=== PATIENT | female | born 1955 | race Caucasian/White ===

== ENCOUNTER 2023-08-21 08:36 | Emergency (ER) | payer OTHER, SELFPAY ==
[2023-08-21 08:39] VITALS: BP 130/88; PULSE 112; RESP 19; TEMP 36.6; O2SAT 98; BMI 33.5
--- NOTE | 2023-08-21 08:49 | ED.GENADULT ---
HPI - General Adult General Chief complaint: General Medical Stated complaint: rash Time Seen by Provider: 08/21/23 08:49 Source: patient Mode of arrival: ambulatory Limitations: no limitations History of Present Illness ED Provider: Dr. Dimitrios Mann HPI narrative: 68-year-old female with a history of bipolar disorder and hypothyroidism who presents emergency department painful rash to her upper and lower extremities. Patient states she was playing in the park yesterday with the grandson but does not believe that she was exposed to any vegetation/poison aimee type plants. She states that yesterday she developed pain in her lower extremities and then developed a rash. She also states her lower extremities became swollen. She states that today she developed a rash in her upper extremities. This concerned her and she came to the emergency department for evaluation. The patient denies any new medications. She states she has no allergies to food but does have allergies to amoxicillin and clindamycin but she was not exposed to these drugs. She denied fever, chills, rhinorrhea, sore throat, cough, chest pain or shortness of breath. She has had no nausea vomiting or diarrhea. She denied myalgias arthralgias. She states that she is having difficulty walking secondary to the pain and swelling of her legs but denied fatigue, night sweats, weight loss or weight gain. Related Data Previous Rx's ?Medication ?Instructions ?Recorded prednisone 10 mg tablet 10 mg PO DIRECTED #60 tabs 08/21/23 Allergies Allergy/AdvReac Type Severity Reaction Status Date / Time amoxicillin [AMOXICILLIN] Allergy Unknown RASH Verified 08/21/23 08:44 clindamycin [CLINDAMYCIN] Allergy Unknown UNKNOWN Verified 08/21/23 08:44 Review of Systems Review of Systems: Yes all other systems are reviewed and are negative [facility] Past Medical History [facility] Narrative: Social history: She denies tobacco, alcohol and drug use. Social History Social History Smoked in Last 30 Days: No Use of substances other than those prescribed or required for medical reasons: No Advance Directives: No Advance Directives Information Provided: Yes Physical Exam ED Vital Signs: Vital Signs - 24 hr 08/21/23 08:39 Temperature 98 F Pulse Rate 112 H Respiratory Rate 19 Blood Pressure 130/88 Pulse Oximetry 98 BMI result Body Mass Index 33.5 Vital signs revealed an elevated pulse of 112 otherwise unremarkable. Exam: General: Awake, alert in no distress Head: Normocephalic, atraumatic EENT: PERRL, Lids normal, sclera normal, conjunctiva normal, nose normal , ears normal, throat without erythema or exudates Neck: Supple, no adenopathy Lung: breath sounds symmetric, no wheezing, rales or rhonchi Chest: symmetric movement, nontender Heart: regular rate and rhythm, normal S1, S2 no murmurs or rubs Abdomen: soft, non-tender, nondistended, normal bowel sounds Back: no vertebral tenderness, no CVAT Extremities: Patient has a nonblanching, purpuric rash on her legs and arms (see photos below). Patient has nonpitting edema to her ankles. Neuro: Awake, alert, oriented, normal speech, cranial nerves intact, moves all extremities symmetrically Psych: Pleasant, cooperative Medical Decision Making Medical Decision Making MDM Narrative: 68-year-old female with a history of bipolar disorder and hypothyroidism who presents emergency department painful rash to her upper and lower extremities. Patient's vital signs were normal. Physical examination revealed a nonblanching purpuric rash on her ankles, lower extremities and upper extremities. Patient had no concerning systemic symptoms, no new medications that she started in no recent viral illnesses. Differential diagnosis: ?Includes but is not limited to vasculitis, rheumatologic disease, malignancy, ITP, TTP, drug-induced vasculitis Following evaluation was ordered: CBC, CMP, PT/INR, PTT, ESR, CRP, urinalysis, urine tox screen, CPK Patient was initially treated with the following: Prednisone 60 mg orally Course: 12:32 My interpretation patient's laboratory evaluation is as follows: CBC was normal. CMP revealed an elevated BUN of 25 with normal creatinine of 0.81. CK was normal at 253. Urine tox screen was negative. Urinalysis positive for blood with negative urinalysis. ESR and CRP were normal. At this time I believe that the patient has painful purpuric rash. Etiology is unclear. I did discuss vasculitis with the patient. The patient was started on prednisone 60 mg once a day for 5 days decrease by 1 pill every 2 days until she completes the taper course. Patient was advised to take Tylenol for pain. She was instructed to follow up with her PCP for re-evaluation and to return if her symptoms get worse or she develops any new symptoms that are concerning to her. Admission/Observation Consideration of admission/observation: Escalation of care including admission/observation considered Lab Data MDM Lab Attestation statement: I reviewed the patient's lab results. 08/21/23 09:40 08/21/23 09:39 Labs: Lab Results 08/21/23 08/21/23 08/21/23 Range/Units 09:39 09:40 11:00 WBC 12.6 H (4.8-10.8) X10*3/uL RBC 4.69 (4.20-5.50) X10*6/uL Hgb 13.7 (12.0-16.0) g/dl Hct 42.2 (37.0-47.0) % MCV 90.0 (80.0-98.0) fL MCH 29.2 (27.0-33.0) pg MCHC 32.5 (31.0-35.0) g/dl RDW 14.1 (11.0-16.0) % Plt Count 177 (160-400) X10*3/uL MPV 9.1 L (9.4-12.3) fL Immature Gran % (Auto) 1.3 H (0.0-0.4) % Neut % (Auto) 67.7 (45-73) % Lymph % (Auto) 20.7 (20-40) % [place] % (Auto) 8.8 (2-11) % Eos % (Auto) 0.8 (0-4) % Baso % (Auto) 0.7 (0-2) % Lymph # (Auto) 2.6 (1.2-4.9) X10*3/uL [place] # (Auto) 1.1 (0.1-1.2) X10*3/uL Eos # (Auto) 0.1 (0.0-0.4) X10*3/uL Baso # (Auto) 0.1 (0.0-0.2) X10*3/uL Abs Immat Gran (auto) 0.17 H (0.00-0.03) X10*3/uL Absolute Neuts (auto) 8.5 H (2.0-8.3) x10*3/uL Absolute Nucleated RBC 0.000 (0.0-0.012) X10*3/uL Nucleated RBC % (auto) 0.0 (0.0-0.2) /100WBC ESR 7 (0-20) MM/HR PT 11.6 (11.1-13.3) SEC INR 1.0 (0.9-1.1) APTT 26.7 (26.0-36.8) SEC Sodium 141 (135-145) mmol/L Potassium 4.3 (3.3-5.1) mmol/L Chloride 108 (96-108) mmol/L Carbon Dioxide 28 (22-29) mmol/L Anion Gap 9 L (12-20) BUN 25 H (9-16) mg/dL Creatinine 0.81 (0.5-1.4) mg/dL Estim Creat Clear Calc 73.5 Estimated GFR > 60 Random Glucose 80 (60-115) mg/dL Lactic Acid 1.2 (0.5-2.0) mmol/L Calcium 9.2 (8.4-10.2) mg/dL Magnesium 1.9 (1.6-2.6) mg/dL Total Bilirubin 0.3 (0.0-1.0) mg/dL AST 23 (5-31) U/L ALT 27 (0-31) U/L Alkaline Phosphatase 69 (39-117) U/L Total Creatine Kinase 253 H (26-140) U/L C-Reactive Protein 0.80 H (< or = 0.50) mg/dL Total Protein 6.6 (6.5-8.0) g/dL Albumin 3.4 L (3.5-5.0) g/dL Lipase 36 (8-78) U/L Urine Color Yellow Urine Appearance Clear Urine pH 6.5 (5.0-9.0) Ur Specific [place] <= 1.005 (1.005-1.025) Urine Protein Negative (Neg-Trace) mg/dL Urine Glucose (UA) Negative (Negative) mg/dL Urine Ketones Negative (Negative) mg/dL Urine Blood Trace H (Negative) Urine Nitrite Negative (Negative) Ur Leukocyte Esterase Negative (Negative) Urine RBC 0-2 (0-2) /HPF Urine WBC 0-5 (0-5) /HPF Ur Squamous Epith Cells 0-2 (0-2) /HPF Urine Bacteria None Seen (None Seen) Hyaline Casts 0-2 (0-2) /LPF Urine Opiates Screen Not Detected (Not Detect) Ur Buprenorphine Scrn Not Detected (Not Detect) ng/mL Ur Oxycodone Screen Not Detected (Not Detect) ng/mL Urine Methadone Screen Not Detected (Not Detect) ng/mL Urine Fentanyl Screen Not Detected (Not Detect) Ur Barbiturates Screen Not Detected (Not Detect) Ur Phencyclidine Scrn Not Detected (Not Detect) Ur Amphetamines Screen Not Detected (Not Detect) U Benzodiazepines Scrn Not Detected (Not Detect) Urine Cocaine Screen Not Detected (Not Detect) U Marijuana (THC) Screen Not Detected (Not Detect) Prescription Management I considered prescription management with: Other (Anti-inflammatory steroid-prednisone) Chronic Conditions Patient?s care impacted by: Other (Bipolar disorder) Discharge Plan Discharge Clinical Impression: Vasculitis, [place] Patient Disposition: Home, Self-Care Instructions: [place] (ED) Additional Instructions: Your blood work was normal which is reassuring. Your symptoms and presentation are consistent with a vasculitis which is inflammation of the arteries in your skin that causes bleeding under the skin. This is treated with an anti-inflammatory steroid called prednisone. Take prednisone 10 mg pills, sick pills once a day for 5 days, then decrease by 1 pill every 2 days until you complete the prescription.. While you ?are taking prednisone, do not take any NSAIDs (Motrin, Advil, ibuprofen, Aleve, naproxen). Take Tylenol (acetaminophen) 500 mg pills, 2 pills every 6 hours as needed for pain or fever. Follow-up with your doctor in 2 days. Please return to the emergency department if your symptoms get worse or if you develop any symptoms that are concerning to you. Prescriptions: New prednisone 10 mg tablet 10 mg PO DIRECTED Qty: 60 0RF Rx Instructions: Day 1 through 5 take 6 pills then decrease by 1 pill every 2 days until you complete prescription Print Language: [place] Islander
--- NOTE | 2023-08-21 09:24 | PC.NURSE ---
Pt a/ox4, comes from home for rash on bilateral upper and lower extremities. Pt states rash is sensitive to the touch. Skin pwd and intact, no abrasions noted to areas. Lung sounds cta bilaterally, S1 and S2 heard, abdomen soft and non-tender. Pt tearful upon entry about missing day. This RN was able to talk to pt and calm her down. Vss and up to date, awaiting further orders, resting in bed, call rico within reach.
[2023-08-21 09:46] LABS: MANUAL DIFF FLAG NO
[2023-08-21 09:47] LABS: Basophils Absolute Auto 0.1 X10*3/uL (0.0-0.2); Basophils Percent Auto 0.7 % (0-2); Eosinophils Absolute Auto 0.1 X10*3/uL (0.0-0.4); Eosinophils Percent Auto 0.8 % (0-4); Hematocrit 42.2 % (37.0-47.0); Hemoglobin 13.7 g/dl (12.0-16.0); Imm Gran Abs Auto 0.17 X10*3/uL (0.00-0.03); Imm Gran Pct Auto 1.3 % (0.0-0.4); Lymphocytes Absolute Auto 2.6 X10*3/uL (1.2-4.9); Lymphocytes Percent Auto 20.7 % (20-40); Mean Corpuscular HGB Conc 32.5 g/dl (31.0-35.0); Mean Corpuscular Hemoglobin 29.2 pg (27.0-33.0); Mean Platelet Volume 9.1 fL (9.4-12.3); Monocytes Absolute Auto 1.1 X10*3/uL (0.1-1.2); Monocytes Percent Auto 8.8 % (2-11); Neutrophils Absolute Auto 8.5 x10*3/uL (2.0-8.3); Neutrophils Percent Auto 67.7 % (45-73); Platelet Count 177 X10*3/uL (160-400); Red Blood Count 4.69 X10*6/uL (4.20-5.50); Red Cell Distribution Width 14.1 % (11.0-16.0); White Blood Count 12.6 X10*3/uL (4.8-10.8)
[2023-08-21 09:58] LABS: Prothrombin Time 11.6 SEC (11.1-13.3)
[2023-08-21 10:01] LABS: Partial Thromboplastin Time 26.7 SEC (26.0-36.8)
[2023-08-21 10:17] LABS: Lactic Acid 1.2 mmol/L (0.5-2.0)
[2023-08-21 10:25] LABS: Alanine Aminotransferase 27 U/L (0-31); Albumin Level 3.4 g/dL (3.5-5.0); Alkaline Phosphatase 69 U/L (39-117); Anion Gap 9 (12-20); Aspartate Amino Transferase 23 U/L (5-31); Bilirubin Total 0.3 mg/dL (0.0-1.0); Blood Urea Nitrogen 25 mg/dL (9-16); Calcium 9.2 mg/dL (8.4-10.2); Carbon Dioxide 28 mmol/L (22-29); Chloride 108 mmol/L (96-108); Creatinine Clr Calc Pharmacy 73.5; Estimated Glomerular Filt Rate > 60; Glucose Random 80 mg/dL (60-115); Lipase 36 U/L (8-78); Magnesium 1.9 mg/dL (1.6-2.6); Potassium 4.3 mmol/L (3.3-5.1); Sodium 141 mmol/L (135-145); Total Protein 6.6 g/dL (6.5-8.0)
[2023-08-21 10:30] LABS: Erythrocyte Sedimentation Rate 7 MM/HR (0-20)
[2023-08-21 11:09] LABS: Appearance Urine Clear; Color Urine Yellow; Glucose Urine UA Negative (Negative); Leukocyte Esterase Urine Negative (Negative); Nitrite Urine Negative (Negative); PH 6.5 (5.0-9.0); Specific Gravity - Urine <= 1.005 (1.005-1.025); UMIC TRIGGER UACC YES; Urine Blood Trace (Negative); Urine Ketones Negative (Negative); Urine Protein Negative (Neg-Trace)
[2023-08-21 11:24] LABS: Amphetamine Screen Urine Not Detected (Not Detect); Barbiturates, Urine Not Detected (Not Detect); Benzodiazepines Screen Urine Not Detected (Not Detect); Buprenorphine Scr Not Detected (Not Detect); Cannabinoid Screen Urine Not Detected (Not Detect); Cocaine Screen Urine Not Detected (Not Detect); Fentanyl, urine Not Detected (Not Detect); Methadone Screen, Urine Not Detected (Not Detect); Opiate Screen Urine Not Detected (Not Detect); Oxycodone Screen Urine Not Detected (Not Detect); Phencyclidine Screen Urine Not Detected (Not Detect)
[2023-08-21 11:41] LABS: WBC Urine 0-5 /HPF (0-5)
[2023-08-21 11:42] LABS: Bacteria Urine None Seen (None Seen); Hyaline Casts Urine 0-2 /LPF (0-2); RBC Urine 0-2 /HPF (0-2); Squamous Epithelial Cell Urine 0-2 /HPF (0-2)
[2023-08-21 12:22] VITALS: BP 155/70; PULSE 63; RESP 16; TEMP 36.5; O2SAT 99
[2023-08-21] MEDS: predniSONE 20 MG TABLET 60 MG PO (12:48)
[2023-08-21 12:53] VITALS: BP 155/70; PULSE 63; RESP 16; TEMP 36.5; O2SAT 99
== END 2023-08-21 12:54 | disposition home or self-care (01) ==
PROVIDERS: Emergency Provider Emergency Medicine Emergency Medical Services; PCP Family Medicine
DX: I77.6 Arteritis, unspecified (principal); D69.2 Other nonthrombocytopenic purpura
CPT/HCPCS: 36415; 80053; 80307; 81001; 82550; 83605; 83690; 83735; 85025; 85610; 85652; 85730; 86140; 99284

== ENCOUNTER 2023-11-27 09:05 | Inpatient (IN) | payer MEDICARE, OTHER, SELFPAY ==
--- NOTE | ~2023-11-27 | US_ITS ---
EXAMINATION: US TRIPLEX LOWER EXTREMITY, LEFT CLINICAL INFORMATION: Left leg swelling and warmth. Evaluate for deep vein thrombosis. COMPARISON: None available. TECHNIQUE: Color-flow triplex imaging with spectral analysis and compression Doppler were performed on the left lower extremity. FINDINGS: Heterogeneity and noncompressibility within the left common femoral vein, greater saphenous vein, proximal femoral vein, and profunda femoral vein. Additionally, there is no significant Doppler flow within the mid and distal femoral vein, likely due to thrombus. Minimal Doppler flow within the left popliteal vein. No significant flow within the left posterior tibial vein. Peroneal is not well seen. There is no Campos's cyst. US/US venous duplex LE LT IMPRESSION: 1. Deep vein thrombosis within the left common femoral vein, greater saphenous vein, proximal femoral vein, and profunda femoral vein. 2. Minimal Doppler flow within the left popliteal vein. No significant flow within the left posterior tibial vein. This critical result was discussed with LYLE Perez at 10:50 AM on 11/27/2023 and it was ascertained that the content and urgency of the report was understood at the time of direct communication. Electronically signed by: Chuck Clarke MD 11/27/2023 10:54 AM EDT
[2023-11-27 09:18] VITALS: BP 132/82; PULSE 91; RESP 18; TEMP 36; O2SAT 97; BMI 34.3
--- NOTE | 2023-11-27 09:35 | ED.EXTPRO ---
HPI - Extremity Problem General Chief complaint: Extremity Problem Stated complaint: L Leg swelling Time Seen by Provider: 11/27/23 09:29 Source: patient Mode of arrival: ambulatory Limitations: no limitations History of Present Illness ED Provider: Zion Chaves PA-C HPI Narrative: 68 y/o female with history of bipolar disorder, hypothroidism, periperal vascular disease s/p multiple venous procedures in the past (done at [facility], last 3 years ago) who presents to the ER for evaluation of acute onset of left leg swelling that started last night. She reports at baseline her legs are usually symmetrical and she does not have any residual left-sided swelling. She states she noticed swelling in her entire leg last evening. No injury. No redness to the area. She denies any chest pain or shortness of breath. She denies being on aspirin or any medications for her venous issues. She is unclear what procedure she has had done in the past. She states her vascular surgeon at [facility] wanted to do another procedure but she declined. MD Complaint: extremity swelling Onset (ago): day(s) (1) Pain Consistency: constant Location: lower extremity Radiation: proximal Relieving factors: nothing Exacerbating factors: nothing Associated symptoms: denies other symptoms Related Data Previous Rx's ?Medication ?Instructions ?Recorded prednisone 10 mg tablet 10 mg PO DIRECTED #60 tabs 08/21/23 Allergies Allergy/AdvReac Type Severity Reaction Status Date / Time amoxicillin [AMOXICILLIN] Allergy Unknown RASH Verified 11/27/23 09:22 clindamycin [CLINDAMYCIN] Allergy Unknown UNKNOWN Verified 11/27/23 09:22 Review of Systems Review of Systems: Yes all other systems are reviewed and are negative [facility] Social History Social History Advance Directives: No Advance Directives Information Provided: Yes Physical Exam Vital Signs: Vital Signs: Last Vital Signs Temp 96.8 F 11/27/23 09:18 Pulse 91 11/27/23 09:18 Resp 18 11/27/23 09:18 BP 132/82 11/27/23 09:18 Pulse Ox 97 11/27/23 09:18 O2 Del Method Room Air 11/27/23 09:18 BMI result Body Mass Index 34.3 Appearance: Alert. Oriented X3. No acute distress. Head: normocephalic, atraumatic. Eyes: Pupils equal, round and reactive to light. ENT: Pharynx normal. No tonsillar swelling or exudate. Neck: Normal inspection. Neck supple. CVS: Normal heart rate and rhythm. Pulses normal. Respiratory: No respiratory distress. Breath sounds normal. Abdomen: Soft and nontender. +BS x4 Skin: Skin warm and dry. Normal skin color. Normal skin turgor. No rashes. Extremities: No lower extremity edema in the RLE. 3+ pitting edema of the LLE involving the foot, lower leg and proximal thigh Neuro/psych: Oriented X 3. No motor deficit. No sensory deficit. CN II-XII intact. Normal speech and cognition. Antalgic gait Medical Decision Making Medical Decision Making MDM Narrative: 68-year-old female with history of bipolar disorder, hypothyroidism, peripheral vascular disease who has had unknown vascular procedures done on her left leg in the past presents to the ER for evaluation of acute onset of left lower extremity swelling that started last night. She does have pitting edema of her almost entire left lower extremity. No erythema or warmth to suggest cellulitis. Concern for DVT. She does have adequate peripheral pulses making arterial occlusion/active disease less likely. She has no chest pain or SOB, low suspicion for PE. U/S LLE showing extensive DVT in the LLE with poor flow in the popliteal vein and minimal flow in the lower leg. Case d.w Dr. Cote as Dr. Michelle is away - case also d/w Dr. Oliva - recommending admission for anticoagulation and evaluation by Dr. Michelle tomorrow Patient updated on plan of care - heparin infusion ordered. Differential Diagnosis Differential Diagnoses: The differential diagnosis associated with the presentation includes DVT, cellulitis, lymphedema, arterial occlusion Admission/Observation Consideration of admission/observation: Escalation of care including admission/observation considered Consult Healthcare Provider Management of the patient was discussed with: Hospitalist and Professor Of Food Biochemistry Dr. Rupert Cote Lab Data MDM Lab Attestation statement: I reviewed the patient's lab results. mild anemia and thrombocytopenia, no contraindication for anticoagulation 11/27/23 10:45 11/27/23 10:45 Labs: Lab Results 11/27/23 Range/Units 10:45 WBC 8.9 (4.8-10.8) X10*3/uL RBC 3.95 L (4.20-5.50) X10*6/uL Hgb 11.9 L (12.0-16.0) g/dl Hct 35.6 L (37.0-47.0) % MCV 90.1 (80.0-98.0) fL MCH 30.1 (27.0-33.0) pg MCHC 33.4 (31.0-35.0) g/dl RDW 13.7 (11.0-16.0) % Plt Count 152 L (160-400) X10*3/uL MPV 9.0 L (9.4-12.3) fL Immature Gran % (Auto) 0.6 H (0.0-0.4) % Neut % (Auto) 69.4 (45-73) % Lymph % (Auto) 19.9 L (20-40) % [place] % (Auto) 8.5 (2-11) % Eos % (Auto) 1.1 (0-4) % Baso % (Auto) 0.5 (0-2) % Lymph # (Auto) 1.8 (1.2-4.9) X10*3/uL [place] # (Auto) 0.8 (0.1-1.2) X10*3/uL Eos # (Auto) 0.1 (0.0-0.4) X10*3/uL Baso # (Auto) 0.0 (0.0-0.2) X10*3/uL Abs Immat Gran (auto) 0.05 H (0.00-0.03) X10*3/uL Absolute Neuts (auto) 6.2 (2.0-8.3) x10*3/uL Absolute Nucleated RBC 0.000 (0.0-0.012) X10*3/uL Nucleated RBC % (auto) 0.0 (0.0-0.2) /100WBC APTT 28.8 (26.0-36.8) SEC Sodium 140 (135-145) mmol/L Potassium 4.2 (3.3-5.1) mmol/L Chloride 107 (96-108) mmol/L Carbon Dioxide 27 (22-29) mmol/L Anion Gap 10 L (12-20) BUN 24 H (9-16) mg/dL Creatinine 0.95 (0.5-1.4) mg/dL Estim Creat Clear Calc 63.5 Estimated GFR 59 Random Glucose 94 (60-115) mg/dL Calcium 9.3 (8.4-10.2) mg/dL Magnesium 2.1 (1.6-2.6) mg/dL Total Bilirubin 0.3 (0.0-1.0) mg/dL Direct Bilirubin 0.1 (0.0-0.5) mg/dL AST 22 (5-31) U/L ALT 19 (0-31) U/L Alkaline Phosphatase 58 (39-117) U/L Total Protein 6.1 L (6.5-8.0) g/dL Albumin 3.4 L (3.5-5.0) g/dL Independent Interpretation I performed an independent interpretation of an: Ultrasound Interpretation: extensive DVT, acute in the LLE Radiology Impression Discussion of test interpretation with radiology: I have reviewed the radiologist's reading. Radiologist Impression: EXAMINATION: US TRIPLEX LOWER EXTREMITY, LEFT CLINICAL INFORMATION: Left leg swelling and warmth. Evaluate for deep vein thrombosis. COMPARISON: None available. TECHNIQUE: Color-flow triplex imaging with spectral analysis and compression Doppler were performed on the left lower extremity. FINDINGS: Heterogeneity and noncompressibility within the left common femoral vein, greater saphenous vein, proximal femoral vein, and profunda femoral vein. Additionally, there is no significant Doppler flow within the mid and distal femoral vein, likely due to thrombus. Minimal Doppler flow within the left popliteal vein. No significant flow within the left posterior tibial vein. Peroneal is not well seen. There is no Campos's cyst. US/US venous duplex LE LT IMPRESSION: 1. Deep vein thrombosis within the left common femoral vein, greater saphenous vein, proximal femoral vein, and profunda femoral vein. 2. Minimal Doppler flow within the left popliteal vein. No significant flow within the left posterior tibial vein. Tests considered The following testing was considered but not selected: considered CTA abd/pelvis to assess clot burden Prescription Management I considered prescription management with: Pain Medication and Antibiotic Chronic Conditions Patient?s care impacted by: Other (Peripheral vascular disease) Critical Care Time Critical Care Time Critical Care Time: Yes Total Critical Care Time: 33 Attestation: I have personally provided critical care time exclusive of time spent on separately billable procedures. Time includes review of lab data, radiology results, discussion with consultants, and monitoring for potential decompensation. Intervention performed as documented. Discharge Plan Discharge Clinical Impression: Deep vein thrombosis of lower extremity Qualifiers: Affected thrombotic vein of extremity: femoral Chronicity: acute Laterality: left Qualified Code(s): I82.412 - Acute embolism and thrombosis of left femoral vein Patient Disposition: Admitted As Inpatient Print Language: Trinid[place]
[2023-11-27 10:52] LABS: MANUAL DIFF FLAG NO
[2023-11-27 10:54] LABS: Eosinophils Absolute Auto 0.1 X10*3/uL (0.0-0.4); Eosinophils Percent Auto 1.1 % (0-4); PLT CLUMP 1; SCAN SMEAR FLAG 1
[2023-11-27 10:56] LABS: Basophils Percent Auto 0.5 % (0-2); Hematocrit 35.6 % (37.0-47.0); Hemoglobin 11.9 g/dl (12.0-16.0); Imm Gran Abs Auto 0.05 X10*3/uL (0.00-0.03); Imm Gran Pct Auto 0.6 % (0.0-0.4); Lymphocytes Absolute Auto 1.8 X10*3/uL (1.2-4.9); Lymphocytes Percent Auto 19.9 % (20-40); Mean Corpuscular HGB Conc 33.4 g/dl (31.0-35.0); Mean Corpuscular Hemoglobin 30.1 pg (27.0-33.0); Mean Corpuscular Volume 90.1 fL (80.0-98.0); Monocytes Absolute Auto 0.8 X10*3/uL (0.1-1.2); Monocytes Percent Auto 8.5 % (2-11); Neutrophils Absolute Auto 6.2 x10*3/uL (2.0-8.3); Neutrophils Percent Auto 69.4 % (45-73); Red Blood Count 3.95 X10*6/uL (4.20-5.50); Red Cell Distribution Width 13.7 % (11.0-16.0)
[2023-11-27 11:01] LABS: Platelet Count 152 X10*3/uL (160-400); White Blood Count 8.9 X10*3/uL (4.8-10.8)
[2023-11-27 11:09] LABS: Alanine Aminotransferase 19 U/L (0-31); Albumin Level 3.4 g/dL (3.5-5.0); Alkaline Phosphatase 58 U/L (39-117); Anion Gap 10 (12-20); Aspartate Amino Transferase 22 U/L (5-31); Bilirubin Direct 0.1 mg/dL (0.0-0.5); Bilirubin Total 0.3 mg/dL (0.0-1.0); Blood Urea Nitrogen 24 mg/dL (9-16); Calcium 9.3 mg/dL (8.4-10.2); Carbon Dioxide 27 mmol/L (22-29); Chloride 107 mmol/L (96-108); Creatinine Clr Calc Pharmacy 63.5; Estimated Glomerular Filt Rate 59; Glucose Random 94 mg/dL (60-115); Magnesium 2.1 mg/dL (1.6-2.6); Potassium 4.2 mmol/L (3.3-5.1); Sodium 140 mmol/L (135-145); Total Protein 6.1 g/dL (6.5-8.0)
[2023-11-27 11:13] LABS: Partial Thromboplastin Time 28.8 SEC (26.0-36.8)
--- NOTE | 2023-11-27 11:25 | P.HPHOSP_ITS ---
History of Present Illness Date of Service: 11/27/23 Attending physician on admission: Marck Brownlee Chief Complaint: Left lower leg swelling Pt is a 68-year-old female with a PMH significant for?peripheral vascular disease, hypothyroidism, and mood disorder who presents to the ED for evaluation of sudden onset leg swelling since last night. Patient denies any erythema or pain. No known trauma to the area. Has not had any recent prolonged travel. Patient reports being very active as she lives on on the 3rd floor and walks up and down the stairs daily, as well as regularly taking her grandkids to the park. No history of smoking, alcohol, or illicit substance use. States she has a past history of at least 2 prior DVTs 3 years ago at [facility], where it appears she underwent surgical clot removal. However, review of records only reveals superficial saphenous vein thrombus treated with Eliquis. States her father at 55 due to ?thick blood?, though she is unable to further specify his PMH. Denies any known miscarriages. Patient otherwise denies any acute medical complaints. No fever, chills, nausea, vomiting, abdominal pain. No shortness a breath or difficulty breathing. Denies chest pain or pressure or palpitations. In the ED pt's vitals stable and WNL. Labs were grossly unremarkable and at baseline for patient. No leukocytosis. Stable H&H. No significant electrolyte abnormalities. Renal and hepatic function baseline. Venous to lower extremity a DVT within left common femoral vein, greater saphenous vein, proximal femoral vein, and profunda femoral vein. Also found minimal Doppler flow within the left popliteal vein with no significant flow within left posterior tibial vein. In the ED patient was started on a heparin drip. Pt will be admitted to the hospital for treatment and further evaluation of extensive DVT requiring heparin drip and vascular surgery consult. Review of Systems 2 Review of Systems: Left lower leg swelling since last night Denies pain, erythema No other acute medical complaints at this time Denies shortness a breath or difficulty breathing PMFSH Social History Patient Tobacco Use Status: Never used Tobacco Meds Allergies Allergy/AdvReac Type Severity Reaction Status Date / Time amoxicillin [AMOXICILLIN] Allergy Unknown RASH Verified 11/27/23 09:22 clindamycin [CLINDAMYCIN] Allergy Unknown UNKNOWN Verified 11/27/23 09:22 Active Medications: Current Medications Heparin Sodium (Porcine) (Heparin Sodium,Porcine 5,000 Unit/Ml Vial) 3,600 unit 40 unit/kg (3600 unit) IVPUSH PROTOCOL BOLUS PRN; Protocol PRN Reason: 40 unit/kg - Heparin Protocol Heparin Sodium (Porcine) (Heparin Sodium,Porcine 5,000 Unit/Ml Vial) 7,300 unit 80 unit/kg (7300 unit) IVPUSH PROTOCOL BOLUS PRN; Protocol PRN Reason: 80 unit/kg - Heparin Protocol Heparin Sodium/Sodium Chloride (Heparin Sodium,Porcine/1/2ns) 25,000 unit in 250 mls @ 0 mls/hr IVCONT .Q0M [facility]; Protocol Home Medications ?Medication ?Instructions ?Recorded ?Confirmed ?Last Taken ?Type divalproex 500 mg tablet,delayed 500 mg PO BID 11/27/23 Unknown History release levothyroxine 50 mcg tablet 50 mcg PO DAILY@0600 11/27/23 Unknown History lurasidone 60 mg tablet 60 mg PO DAILY 11/27/23 Unknown History trazodone 100 mg tablet 100 - 200 mg PO BEDTIME PRN 11/27/23 Unknown History insomnia Physical Exam 2 Vital Signs and Narrative: Vital Signs: Last Vital Signs Temp 96.8 F 11/27/23 09:18 Pulse 91 11/27/23 09:18 Resp 18 11/27/23 09:18 BP 132/82 11/27/23 09:18 Pulse Ox 97 11/27/23 09:18 O2 Del Method Room Air 11/27/23 09:18 BMI result Body Mass Index 34.3 General: AOx3, no acute distress Resp: CTA bilaterally CVS: S1, S2, RRR GI: +BS, NT, no distention Skin: Warm, dry Neuro: Cranial nerves II-XII grossly intact bilaterally. Motor grossly intact bilaterally Extremities: Minor chronic venous stasis dermatitis changes. 2+ left lower leg edema, as pictured below Psych: Appropriate affect Results Labs 11/27/23 10:45 11/27/23 10:45 Labs: Laboratory Results - last 24 hr 11/27/23 10:45 MCV 90.1 MCH 30.1 MCHC 33.4 RDW 13.7 Plt Count 152 L MPV 9.0 L Immature Gran % (Auto) 0.6 H Neut % (Auto) 69.4 Lymph % (Auto) 19.9 L Dade % (Auto) 8.5 Eos % (Auto) 1.1 Baso % (Auto) 0.5 Lymph # (Auto) 1.8 Dade # (Auto) 0.8 Eos # (Auto) 0.1 Baso # (Auto) 0.0 Abs Immat Gran (auto) 0.05 H Absolute Neuts (auto) 6.2 Absolute Nucleated RBC 0.000 Nucleated RBC % (auto) 0.0 APTT 28.8 Anion Gap 10 L Estim Creat Clear Calc 63.5 Estimated GFR 59 Random Glucose 94 Calcium 9.3 Magnesium 2.1 Total Bilirubin 0.3 Direct Bilirubin 0.1 AST 22 ALT 19 Alkaline Phosphatase 58 Total Protein 6.1 L Albumin 3.4 L Imaging Radiologist's Impressions: Impressions Venous Duplex 11/27/23 10:10 IMPRESSION: 1. Deep vein thrombosis within the left common femoral vein, greater saphenous vein, proximal femoral vein, and profunda femoral vein. 2. Minimal Doppler flow within the left popliteal vein. No significant flow within the left posterior tibial vein. This critical result was discussed with LYLE Perez at 10:50 AM on 11/27/2023 and it was ascertained that the content and urgency of the report was understood at the time of direct communication. Electronically signed by: Chuck Clarke MD 11/27/2023 10:54 AM EDT RP Assessment and Plan (1) Deep vein thrombosis of lower extremity: Qualifiers: Affected thrombotic vein of extremity: femoral Chronicity: acute L aterality: left Qualified Code(s): I82.412 - Acute embolism and thrombosis of left femoral vein Status: Acute Plan Pt is a 68-year-old female with a PMH significant for?peripheral vascular disease, hypothyroidism, and bipolar disorder who presents to the ED for evaluation of sudden onset leg swelling since last night. Pt will be admitted to the hospital for treatment and further evaluation of extensive DVT requiring heparin drip and vascular surgery consult. Left DVT Patient with left lower extremity swelling since last night Doppler U/S found DVT within left common femoral vein, greater saphenous vein, proximal femoral vein, and profunda femoral vein with minimal Doppler flow in the popliteal and left posterior tibial vein Reports hx of prior left DVT 3 years ago at [facility], review of records indicates had superficial saphenous vein thrombus treated with Eliquis ?Hypercoagulable state, should pursue additional workup outpatient Heparin drip Vascular surgery consult Will make NPO after midnight for possible surgical intervention tomorrow Monitor on telemetry Hypothyroidism Continue levothyroxine Bipolar disorder Continue Depakote, lurasidone, trazodone Full Code Attending:?Dr. Brownlee DVT Prophylaxis: On heparin drip Given the extensiveness of patient's DVT, she will require a hospitalization of at least two nights for administration of heparin drip and vascular surgery consult for possible surgical intervention. Quality Stroke Does the patient have a stroke diagnosis?: No VTE Prior VTE?: Yes Approximate Date of Prior VTE: 08/31/19 VTE Risk Level:: Medical - moderate - high VTE Device Contraindication: Treatment Not Indicated VTE Drug Contraindication: N/A - Med Ordered
--- NOTE | 2023-11-27 11:42 | PC.NURSE ---
Report given to Michael RNJono Arevalo at bedside discussing plan of care pt to be moved to ED20 for for further eval and tx
[2023-11-27 12:00] VITALS: BMI 35.5
[2023-11-27 12:11] VITALS: BP 142/69; PULSE 49; RESP 16; TEMP 36.8; O2SAT 96
[2023-11-27] MEDS: Heparin Sodium,Porcine/1/2NS 25,000 UNIT/250 ML IV.SOLN 13.12 UNIT IVCONT (12:46)
[2023-11-27 13:47] LABS: INTERNATIONAL NORM RATIO 0.9 (0.9-1.1)
[2023-11-27 13:55] VITALS: BP 144/66; PULSE 57; RESP 16; TEMP 36.3; O2SAT 98
[2023-11-27] MEDS: 0.9 % Sodium Chloride Flush 3 ML SYRINGE IVFLUSH (15:19)
--- NOTE | 2023-11-27 15:47 | P.CONGS_ITS ---
History of Present Illness Consult details Consult date: 11/27/23 Narrative: [age] year old female admitted because of left leg pain and swelling. She says this started early yesterday morning. She denied any trauma. She says that the entire leg from the thigh distally had pain and was swollen since yesterday day. Her pain is minimal at this time. She says that she had a history of a blood clot in the leg many years ago and had been managed in [facility]. She had a procedure done at that time She had an ultrasound done here today in the ER showing a DVT within the left common femoral vein, greater saphenous vein and proximal femoral vein and the profunda femoral vein. There was note of minimal Doppler flow within the left popliteal vein. She denies any systemic complaints at this time. Review of Systems 2 Constitutional: Constitutional: Denies chills and Denies fever(s) Cardiovascular: Cardiovascular: Denies chest pain, Denies dyspnea and Denies dyspnea on exertion Respiratory: Respiratory: Denies cough, Denies dyspnea and Denies dyspnea on exertion Gastrointestinal: Gastrointestinal: Denies hematochezia and Denies change in bowel habits Genitourinary: Genitourinary: Denies hematuria Musculoskeletal: Musculoskeletal: Denies back pain and Denies limited range of motion Neurologic: Denies focal weakness and Denies convulsions Psychiatric: Psychiatric: Denies depression and Denies mood swings PMF Past Medical History Medical History (Updated 11/29/23 @ 06:52 by Keesha Seymour RN) Bipolar disorder Hypothyroidism PVD (peripheral vascular disease) Surgical History Surgical History (Updated 11/29/23 @ 07:21 by Keesha Seymour RN) H/O varicose vein ligation No pertinent past surgical history Social History Social History Household Members: None Housing: Apartment Do you presently have visiting nurse or other home services: No Patient Tobacco Use Status: Never used Tobacco service: No Meds Allergies Allergy/AdvReac Type Severity Reaction Status Date / Time amoxicillin [AMOXICILLIN] Allergy Intermediate RASH Verified 11/29/23 07:11 clindamycin [CLINDAMYCIN] Allergy Unknown UNKNOWN Verified 11/29/23 07:11 Active Medications: Current Medications Acetaminophen (Acetaminophen 325 Mg Tablet) 650 mg PO Q6H PRN PRN Reason: Pain, Mild (Pain Scale 1-3), fever or headache Benzonatate (Benzonatate 100 Mg Capsule) 100 mg PO TID PRN PRN Reason: Cough Calcium Carbonate (Calcium Carbonate 750 Mg Tab.Chew) 750 mg PO Q4H PRN PRN Reason: Heartburn Heparin Sodium (Porcine) (Heparin Sodium,Porcine 5,000 Unit/Ml Vial) 3,700 unit 40 unit/kg (3700 unit) IVPUSH PROTOCOL BOLUS PRN; Protocol PRN Reason: 40 unit/kg - Heparin Protocol Heparin Sodium (Porcine) (Heparin Sodium,Porcine 5,000 Unit/Ml Vial) 7,500 unit 80 unit/kg (7500 unit) IVPUSH PROTOCOL BOLUS PRN; Protocol PRN Reason: 80 unit/kg - Heparin Protocol Heparin Sodium/Sodium Chloride (Heparin Sodium,Porcine/1/2ns) 25,000 unit in 250 mls @ 0 mls/hr IVCONT .Q0M [facility]; Protocol Last Admin: 11/27/23 12:46 Dose: 14 units/kg/hr, 13.12 mls/hr Magnesium Hydroxide (Milk Of Magnesia 30 Ml Oral.Susp) 30 ml PO DAILY PRN PRN Reason: Constipation Melatonin (Melatonin 3 Mg Tablet) 6 mg PO BEDTIME PRN PRN Reason: Insomnia Ondansetron HCl (Ondansetron Hcl 4 Mg/2 Ml Vial) 4 mg IVPUSH Q8H PRN PRN Reason: Nausea and Vomiting Sodium Chloride (0.9 % Sodium Chloride Flush 3 Ml Syringe) [facility] Last Admin: 11/27/23 15:19 Dose: 3 ml Home Medications ?Medication ?Instructions ?Recorded ?Confirmed ?Last Taken ?Type divalproex 500 mg tablet,delayed 500 mg PO BID 11/27/23 11/27/23 11/27/23 09:00 History release levothyroxine 50 mcg tablet 50 mcg PO DAILY@0600 11/27/23 11/27/23 11/27/23 06:00 History lurasidone 60 mg tablet 60 mg PO DAILY 11/27/23 11/27/23 11/27/23 09:00 History trazodone 100 mg tablet 100 mg PO BEDTIME PRN insomnia 11/27/23 11/27/23 Unknown History Physical Exam 2 Vital Signs: Vital Signs: Last Vital Signs Temp 97.3 F 11/27/23 13:55 Pulse 57 11/27/23 13:55 Resp 16 11/27/23 13:55 BP 144/66 H 11/27/23 13:55 Pulse Ox 98 11/27/23 13:55 O2 Del Method Room Air 11/27/23 13:55 BMI result Body Mass Index 35.5 Const: General: comfortable and no acute distress Resp: Effort & Inspection: normal respiratory effort Cardio: Rate: regular rate GI: Palpation (GI): Soft to palpation Extrem: Other: Left leg edema from the thigh distally, no skin breakdown, leg is warm to touch and does not appear to have an acute vascular compromise, sensory intact, there was note of some varicosities as well about the leg Results Labs 11/29/23 05:55 11/29/23 05:55 Labs: Abnormal lab results 11/27/23 Range/Units 10:45 RBC 3.95 L (4.20-5.50) X10*6/uL Hgb 11.9 L (12.0-16.0) g/dl Hct 35.6 L (37.0-47.0) % Plt Count 152 L (160-400) X10*3/uL MPV 9.0 L (9.4-12.3) fL Immature Gran % (Auto) 0.6 H (0.0-0.4) % Lymph % (Auto) 19.9 L (20-40) % Abs Immat Gran (auto) 0.05 H (0.00-0.03) X10*3/uL Anion Gap 10 L (12-20) BUN 24 H (9-16) mg/dL Total Protein 6.1 L (6.5-8.0) g/dL Albumin 3.4 L (3.5-5.0) g/dL Short CBC 11/27/23 Range/Units 10:45 WBC 8.9 (4.8-10.8) X10*3/uL Hgb 11.9 L (12.0-16.0) g/dl Hct 35.6 L (37.0-47.0) % Plt Count 152 L (160-400) X10*3/uL BMP 11/27/23 10:45 Sodium 140 Potassium 4.2 Chloride 107 Carbon Dioxide 27 BUN 24 H Creatinine 0.95 Calcium 9.3 Liver Function 11/27/23 Range/Units 10:45 Total Bilirubin 0.3 (0.0-1.0) mg/dL Direct Bilirubin 0.1 (0.0-0.5) mg/dL AST 22 (5-31) U/L ALT 19 (0-31) U/L Alkaline Phosphatase 58 (39-117) U/L Albumin 3.4 L (3.5-5.0) g/dL All other labs normal. DVT within left common femoral vein, greater saphenous vein, proximal femoral vein, and profunda femoral vein. Also found minimal Doppler flow within the left popliteal vein with no significant flow within left posterior tibial vein. In th Assessment and Plan (1) Deep vein thrombosis of lower extremity: Qualifiers: Affected thrombotic vein of extremity: femoral Chronicity: acute L aterality: left Qualified Code(s): I82.412 - Acute embolism and thrombosis of left femoral vein Status: Acute She has DVTs on the proximal veins of the thigh. She does have a history of this in the past. She has already been started on anticoagulation with heparin drip Dr. Michelle is out of town today. I will reach out to him tomorrow. If he is not available, we can ask for the opinion of the interventional radiology vascular Service as well ffor a declotting procedure in view of the marked edema. The patient does not seem to have evidence of any vascular compromise at this time I have instructed her to keep her left leg elevated on a pillow for now. Procedures Date of Service Date of Service: 11/29/23
--- NOTE | 2023-11-27 15:53 | PHA.MEDREC ---
Addendum entered by Brian Stone [facility] 11/27/23 16:58: MED REC CHECKED BY [facility] Original Note: Pharmacy Consult ? Medication Reconciliation Pharmacy has completed the medication reconciliation.
[2023-11-27 16:21] VITALS: BMI 34.2
[2023-11-27 18:56] LABS: PTT Heparin Drip 58.2 SEC (53-77.9)
[2023-11-27 19:41] VITALS: BP 145/70; PULSE 72; RESP 16; TEMP 36.8; O2SAT 98
[2023-11-27] MEDS: Divalproex Sodium 500 MG TABLET.DR PO (20:51)
[2023-11-27] MEDS: traZODone HCL 100 MG TABLET PO (20:53)
[2023-11-28] VITALS (7 sets, daily range): BP systolic 120–173; BP diastolic 67–80; PULSE 54–77; RESP 16–20; TEMP 36.1–37.1; O2SAT 95–98
[2023-11-28 00:35] LABS: Hematocrit 34.9 % (37.0-47.0); Hemoglobin 11.6 g/dl (12.0-16.0); Mean Corpuscular HGB Conc 33.2 g/dl (31.0-35.0); Mean Corpuscular Hemoglobin 29.7 pg (27.0-33.0); Mean Corpuscular Volume 89.5 fL (80.0-98.0); Mean Platelet Volume 9.2 fL (9.4-12.3); Platelet Count 133 X10*3/uL (160-400); Red Cell Distribution Width 13.8 % (11.0-16.0); White Blood Count 8.5 X10*3/uL (4.8-10.8)
[2023-11-28 00:47] LABS: Prothrombin Time 11.4 SEC (10.9-12.4)
[2023-11-28 00:49] LABS: PTT Heparin Drip 79.8 SEC (53-77.9)
[2023-11-28] MEDS: Levothyroxine Sodium 50 MCG TABLET PO (05:48)
[2023-11-28] MEDS: Divalproex Sodium 500 MG TABLET.DR PO ×2 (08:33→20:56)
[2023-11-28] MEDS: 0.9 % Sodium Chloride Flush 3 ML SYRINGE IVFLUSH (08:37)
[2023-11-28] MEDS: Heparin Sodium,Porcine/1/2NS 25,000 UNIT/250 ML IV.SOLN 11.24 UNIT IVCONT (08:39)
--- NOTE | 2023-11-28 11:33 | P.CONGS_ITS ---
History of Present Illness Consult details Consult date: 11/28/23 Reason for consult: other (DVT) Narrative: Very pleasant 68-year-old female with a past medical history venous disease hypothyroidism and mood disorder presented to the emergency department with sudden swelling of the left lower extremity. She denied any recent travel any aggravating factors. Upon discussion with her it was sudden on sweat and now presents with a DVT. She did state that she had a prior DVT at [facility] [place]. Upon further discussion with her it appears that she had seen Dr. Clements and had undergone superficial ablation is. There was a thrombus at some point that was treated with Eliquis which she was unclear about the details about. She also reports that her father during open heart surgery due to a hypercoagulable state. She now presents to us for vascular evaluation. Review of Systems 2 Constitutional: Constitutional: Reports as per HPI ENT: Reports system reviewed and no additional complaints, except as documented Cardiovascular: Cardiovascular: Denies chest pain, Denies chest pain at rest and Denies chest pain with activity Respiratory: Respiratory: Denies chest congestion and Denies cough Gastrointestinal: Gastrointestinal: Reports no additional gastrointestinal complaints Musculoskeletal: Musculoskeletal: Denies abnormal gait Integumentary/Breasts: Skin/Breast: Reports pruritus and Denies wounds Neurologic: Reports system reviewed and no additional complaints, except as documented and Denies abnormal gait Psychiatric: Psychiatric: Denies no additional psychiatric complaints [facility] Social History Social History Household Members: None Housing: Apartment Do you presently have visiting nurse or other home services: No Patient Tobacco Use Status: Never used Tobacco Meds Allergies Allergy/AdvReac Type Severity Reaction Status Date / Time amoxicillin [AMOXICILLIN] Allergy Unknown RASH Verified 11/27/23 09:22 clindamycin [CLINDAMYCIN] Allergy Unknown UNKNOWN Verified 11/27/23 09:22 Active Medications: Current Medications Acetaminophen (Acetaminophen 325 Mg Tablet) 650 mg PO Q6H PRN PRN Reason: Pain, Mild (Pain Scale 1-3), fever or headache Benzonatate (Benzonatate 100 Mg Capsule) 100 mg PO TID PRN PRN Reason: Cough Calcium Carbonate (Calcium Carbonate 750 Mg Tab.Chew) 750 mg PO Q4H PRN PRN Reason: Heartburn Divalproex Sodium (Divalproex Sodium 500 Mg Tablet.) 500 mg PO BID [facility] Last Admin: 11/28/23 08:33 Dose: 500 mg Heparin Sodium (Porcine) (Heparin Sodium,Porcine 5,000 Unit/Ml Vial) 3,700 unit 40 unit/kg (3700 unit) IVPUSH PROTOCOL BOLUS PRN; Protocol PRN Reason: 40 unit/kg - Heparin Protocol Heparin Sodium (Porcine) (Heparin Sodium,Porcine 5,000 Unit/Ml Vial) 7,500 unit 80 unit/kg (7500 unit) IVPUSH PROTOCOL BOLUS PRN; Protocol PRN Reason: 80 unit/kg - Heparin Protocol Heparin Sodium/Sodium Chloride (Heparin Sodium,Porcine/1/2ns) 25,000 unit in 250 mls @ 0 mls/hr IVCONT .Q0M [facility]; Protocol Last Admin: 11/28/23 08:39 Dose: 12 units/kg/hr, 11.24 mls/hr Levothyroxine Sodium (Levothyroxine Sodium 50 Mcg Tablet) 50 mcg PO DAILY@0600 [facility] Last Admin: 11/28/23 05:48 Dose: 50 mcg Magnesium Hydroxide (Milk Of Magnesia 30 Ml Oral.Susp) 30 ml PO DAILY PRN PRN Reason: Constipation Melatonin (Melatonin 3 Mg Tablet) 6 mg PO BEDTIME PRN PRN Reason: Insomnia Ondansetron HCl (Ondansetron Hcl 4 Mg/2 Ml Vial) 4 mg IVPUSH Q8H PRN PRN Reason: Nausea and Vomiting Sodium Chloride (0.9 % Sodium Chloride Flush 3 Ml Syringe) 3 ml IVFLUSH [facility] Last Admin: 11/28/23 08:37 Dose: 3 ml Trazodone HCl (Trazodone Hcl 100 Mg Tablet) 100 mg PO BEDTIME PRN PRN Reason: insomnia Last Admin: 11/27/23 20:53 Dose: 100 mg Home Medications ?Medication ?Instructions ?Recorded ?Confirmed ?Last Taken ?Type divalproex 500 mg tablet,delayed 500 mg PO BID 11/27/23 11/27/23 11/27/23 09:00 History release levothyroxine 50 mcg tablet 50 mcg PO DAILY@0600 11/27/23 11/27/23 11/27/23 06:00 History lurasidone 60 mg tablet 60 mg PO DAILY 11/27/23 11/27/23 11/27/23 09:00 History trazodone 100 mg tablet 100 mg PO BEDTIME PRN insomnia 11/27/23 11/27/23 Unknown History Physical Exam 2 Vital Signs: Vital Signs: Last Vital Signs Temp 98.8 F 11/28/23 11:21 Pulse 77 11/28/23 11:21 Resp 20 11/28/23 11:21 BP 151/69 H 11/28/23 11:21 Pulse Ox 98 11/28/23 11:21 O2 Del Method Room Air 11/28/23 11:21 BMI result Body Mass Index 34.2 Const: General: cooperative, healthy appearing and comfortable O rientation/consciousness: oriented to person, oriented to place and oriented to time Neck: Carotids: no bruits Chest: Chest palpation & inspection: normal inspection of the chest and normal palpation of entire chest wall Resp: Effort & Inspection: normal respiratory effort and able to speak in complete sentences Cardio: Rate: regular rate Heart sounds: S1 normal heart sound present and S2 normal heart sound present Peripheral pulses: Peripheral pulses 2+ throughout GI: Inspection: Yes normal to inspection Skin: Other: +2 edema, left leg CEAP Classification C4 - skin color changes Ep - Etiology Primary Ad - deep P - reflux General skin exam: dry skin Neuro: General: oriented to person, oriented to place and oriented to time Extrem: Right lower extremity: full ROM, normal capillary refill and edema Left lower extremity: full ROM, normal capillary refill and edema Psych: Mental Status: mental status grossly normal Results Labs 11/28/23 00:25 11/27/23 10:45 Labs: Abnormal lab results 11/28/23 Range/Units 00:25 RBC 3.90 L (4.20-5.50) X10*6/uL Hgb 11.6 L (12.0-16.0) g/dl Hct 34.9 L (37.0-47.0) % Plt Count 133 L (160-400) X10*3/uL MPV 9.2 L (9.4-12.3) fL aPTT Heparin Protocol 79.8 H D (53-77.9) SEC Short CBC 11/28/23 Range/Units 00:25 WBC 8.5 (4.8-10.8) X10*3/uL Hgb 11.6 L (12.0-16.0) g/dl Hct 34.9 L (37.0-47.0) % Plt Count 133 L (160-400) X10*3/uL All other labs normal. Imaging Additional studies: Ultrasound reviewed and appears to be DVT Assessment and Plan (1) Deep vein thrombosis of lower extremity: Qualifiers: Affected thrombotic vein of extremity: femoral Chronicity: acute L aterality: left Qualified Code(s): I82.412 - Acute embolism and thrombosis of left femoral vein Status: Acute Plan In short patient has a left lower extremity DVT. She will require left lower extremity mechanical venous thrombectomy. Risks benefits complications including but not limited to bleeding, infection, embolization and further clot were discussed in detail with the patient she agreed and would like to move forward. We will schedule her for tomorrow. Thank you for allowing us to assist in her care. Procedures Date of Service Date of Service: 11/28/23
--- NOTE | 2023-11-28 13:06 | P.PNIM_ITS ---
Subjective Subjective Date of Service: 11/28/23 Interval History: seen and evaluated LLE still swollen reporting mild pain no other overnight events Review of Systems Review of Systems: Yes all other systems are reviewed and are negative Physical Exam 2 Vital Signs: Vital Signs: Last Vital Signs Temp 98.8 F 11/28/23 11:21 Pulse 77 11/28/23 11:21 Resp 20 11/28/23 11:21 BP 151/69 H 11/28/23 11:21 Pulse Ox 98 11/28/23 11:21 O2 Del Method Room Air 11/28/23 11:21 BMI result Body Mass Index 34.2 Const: Other: Constitutional : Awake, interactive, not in distress Neck : Normal inspection, Supple Cardiovascular : RRR, no JVP, no lower extremity edema Respiratory : good bilateral air entry, no crackles, wheezes or rhonchi Gastrointestinal: soft, lax, Normal bowel sounds, Non tender Skin : Warm, Dry Extremities: LLE swollen and warm, no significant tenderness Neurological : Alert & oriented x3, No focal deficit Objective Data Active Medications Acetaminophen (Acetaminophen 325 Mg Tablet) 650 mg PO Q6H PRN PRN Reason: Pain, Mild (Pain Scale 1-3), fever or headache Benzonatate (Benzonatate 100 Mg Capsule) 100 mg PO TID PRN PRN Reason: Cough Calcium Carbonate (Calcium Carbonate 750 Mg Tab.Chew) 750 mg PO Q4H PRN PRN Reason: Heartburn Divalproex Sodium (Divalproex Sodium 500 Mg Tablet.Dr) 500 mg PO BID COUNTS INCLUDE 234 BEDS AT THE [facility] Last Admin: 11/28/23 08:33 Dose: 500 mg Documented By: PARVIN Heparin Sodium (Porcine) (Heparin Sodium,Porcine 5,000 Unit/Ml Vial) 3,700 unit 40 unit/kg (3700 unit) IVPUSH PROTOCOL BOLUS PRN; Protocol PRN Reason: 40 unit/kg - Heparin Protocol Heparin Sodium (Porcine) (Heparin Sodium,Porcine 5,000 Unit/Ml Vial) 7,500 unit 80 unit/kg (7500 unit) IVPUSH PROTOCOL BOLUS PRN; Protocol PRN Reason: 80 unit/kg - Heparin Protocol Heparin Sodium/Sodium Chloride (Heparin Sodium,Porcine/1/2ns) 25,000 unit in 250 mls @ 0 mls/hr IVCONT .Q0M COUNTS INCLUDE 234 BEDS AT THE [facility]; Protocol Last Admin: 11/28/23 08:39 Dose: 12 units/kg/hr, 11.24 mls/hr Documented By: PARVIN Co-signed By: TRUNG Sodium Chloride (Ns) 1,000 mls @ 100 mls/hr IVCONT .Q10H COUNTS INCLUDE 234 BEDS AT THE [facility] Levothyroxine Sodium (Levothyroxine Sodium 50 Mcg Tablet) 50 mcg PO DAILY@0600 SUSHILA Last Admin: 11/28/23 05:48 Dose: 50 mcg Documented By: MARCELLO Magnesium Hydroxide (Milk Of Magnesia 30 Ml Oral.Susp) 30 ml PO DAILY PRN PRN Reason: Constipation Melatonin (Melatonin 3 Mg Tablet) 6 mg PO BEDTIME PRN PRN Reason: Insomnia Ondansetron HCl (Ondansetron Hcl 4 Mg/2 Ml Vial) 4 mg IVPUSH Q8H PRN PRN Reason: Nausea and Vomiting Sodium Chloride (0.9 % Sodium Chloride Flush 3 Ml Syringe) 3 ml IVFLUSH QSHIFT COUNTS INCLUDE 234 BEDS AT THE [facility] Last Admin: 11/28/23 08:37 Dose: 3 ml Documented By: PARVIN Trazodone HCl (Trazodone Hcl 100 Mg Tablet) 100 mg PO BEDTIME PRN PRN Reason: insomnia Last Admin: 11/27/23 20:53 Dose: 100 mg Documented By: MARCELLO Labs 11/28/23 00:25 11/27/23 10:45 Labs: Laboratory Results - last 24 hr 11/27/23 11/27/23 11/28/23 10:45 18:41 00:25 MCV 89.5 MCH 29.7 MCHC 33.2 RDW 13.8 Plt Count 133 L MPV 9.2 L Absolute Nucleated RBC 0.000 Nucleated RBC % (auto) 0.0 Hold Purple Top PT 11.0 11.4 INR 0.9 1.0 aPTT Heparin Protocol 58.2 79.8 H D 11/28/23 06:48 MCV MCH MCHC RDW Plt Count MPV Absolute Nucleated RBC Nucleated RBC % (auto) Hold Purple Top SEE NOTE PT INR aPTT Heparin Protocol 76.0 Assessment and Plan (1) Deep vein thrombosis of lower extremity: Status: Acute Plan Pt is a 68-year-old female with a PMH significant for?peripheral vascular disease, hypothyroidism, and bipolar disorder who presents to the ED for evaluation of sudden onset leg swelling since last night. Pt will be admitted to the hospital for treatment and further evaluation of extensive DVT requiring heparin drip and vascular surgery consult. acute Left lower extremity DVT Doppler U/S found DVT within left common femoral vein, greater saphenous vein, proximal femoral vein, and profunda femoral vein with minimal Doppler flow in the popliteal and left posterior tibial vein Outpatient work oup for Hypercoagulable state She will likely need lifelong anticoagulation (Hx father from clotting problem?) continue Heparin drip Vascular surgery input appreciated, To do Thrombectomy tomorrow NPO after midnight Monitor on telemetry Hypothyroidism Continue levothyroxine Bipolar disorder Continue Depakote, lurasidone, trazodone Full Code DVT Prophylaxis: On heparin drip Given the extensiveness of patient's DVT, she will require a hospitalization overnight for administration of heparin drip and vascular surgery intervention tomorrow Quality Stroke Does the patient have a stroke diagnosis?: No VTE Prior VTE?: Yes Approximate Date of Prior VTE: 08/31/19 VTE Risk Level:: Medical - moderate - high VTE Device Contraindication: Treatment Not Indicated VTE Drug Contraindication: N/A - Med Ordered
[2023-11-28 13:50] LABS: PTT Heparin Drip 47.1 SEC (53-77.9)
[2023-11-28] MEDS: Heparin Sodium,Porcine 5,000 UNIT/ML VIAL 3700 UNIT IVPUSH (13:58)
--- NOTE | 2023-11-28 15:57 | MHC.CM.PN ---
PT REPORTS SHE LIVES ALONE AND IS FULLY INDEPENDENT WITH CARE AND MOBILITY SHE WILL COMPLETE A HCP TODAY NAMING HER DAUGHTER, DEZ CARBAJAL HER AGENT SHE SAYS HER PCP IS [facility], BUT SHE ACTUALLY SEES [facility] DELIVERED DCP: HOME NO SERVICES VIA SELF TRANSPORT
[2023-11-28 20:11] LABS: PTT Heparin Drip 90.3 SEC (53-77.9)
[2023-11-28] MEDS: traZODone HCL 100 MG TABLET PO (20:56)
[2023-11-29] VITALS (10 sets, daily range): BP systolic 112–163; BP diastolic 55–95; PULSE 54–99; RESP 15–20; TEMP 36.4–36.7; O2SAT 94–100
[2023-11-29 03:06] LABS: PTT Heparin Drip 94.5 SEC (53-77.9)
[2023-11-29] MEDS: Levothyroxine Sodium 50 MCG TABLET PO (05:49)
[2023-11-29] MEDS: 0.9 % Sodium Chloride 1,000 ML 100 ML IVCONT (05:58)
[2023-11-29 06:19] LABS: Hematocrit 39.5 % (37.0-47.0); Mean Corpuscular HGB Conc 32.9 g/dl (31.0-35.0); Mean Corpuscular Hemoglobin 30.2 pg (27.0-33.0); Mean Corpuscular Volume 91.9 fL (80.0-98.0); Mean Platelet Volume 9.1 fL (9.4-12.3); Platelet Count 155 X10*3/uL (160-400); White Blood Count 8.4 X10*3/uL (4.8-10.8)
[2023-11-29 07:01] LABS: Anion Gap 11 (12-20); Blood Urea Nitrogen 24 mg/dL (9-16); Calcium 9.5 mg/dL (8.4-10.2); Carbon Dioxide 24 mmol/L (22-29); Chloride 110 mmol/L (96-108); Creatinine Clr Calc Pharmacy 65.5; Estimated Glomerular Filt Rate > 60; Glucose Random 87 mg/dL (60-115); Potassium 4.4 mmol/L (3.3-5.1); Sodium 141 mmol/L (135-145)
--- NOTE | 2023-11-29 10:09 | P.OP_ITS ---
Operative Note Operative Note Date of Service: 11/29/23 Narrative: Operative note by [facility] Preoperative diagnosis: Deep venous thrombosis of left lower extremity Postoperative diagnosis: Same Procedure: 1 Ultrasound-guided left popliteal vein access 2. Inferior vena cavogram 3. Percutaneous transluminal venous mechanical thrombectomy (17294) 4. Radiologic super visual and interpretation 5. Plasty of left iliac vein Surgeon:Jevon Michelle M.D. It Corporate Recruiter: None Anesthesia: Local with moderate conscious sedation. Total intra service moderate sedation time was 70 minutes. I monitored the patient's level of consciousness and physiologic status continuously throughout the procedure Specimen: None Drains: None Estimated blood loss: 50 mL Implant: None Comorbid conditions: History of venous disease, mood disorder, hypothyroidism, obesity Indications: On ultrasound she was noted to have acute left lower extremity DVT. The plan of care is mechanical thrombectomy of the lower extremity veins. The patient has signed the informed consent after reviewing risks, complications, benefits, and alternatives previously discussed with the patient. The patient was given the opportunity to ask any additional questions or voice any concerns. All questions were answered to the patient's satisfaction. Procedure in detail: Patient was brought to the Angiography suite prior to which a time-out was called for patient identification and site verification. The patient was placed in a prone position. Bilateral popliteal fossas were prepped out. We first access the left popliteal vein under ultrasound guidance. We then placed a percutaneous 5 Macedonian sheath. We were then able to traverse the clot with a Glidewire Advantage 035 wire. We brought in a trail Blazer catheter to confirmed true lumen. At this time 7000 units of heparin was admi nistered. After 5 minutes of circulation time we then dilated up the tract. The Clot Triever over the wire system was then brought into position. We placed the clot triever sheath and exposed the self expanding Nitinol mesh funnel to facilitate clot removal for large-bore side port rapid aspiration. Once this was accomplished we then advanced over the wire the clot triever catheter with the coring element and braided collection bag. This was brought into the inferior vena cava up past this occlusion and extracted back. We did 4 sequential passes. The main angle of the catheter was placed at the 12:00 o'clock, 03:00 o'clock, 06:00 o'clock, and 09:00 o'clock positions. We did 1 additional pass at the 3 o'clock position. After each pass had been completed, large amount of clot was removed. After each subsequent pass the clot was removed and it was flushed clear and we then brought it in again through this area. Completion venogram demonstrated residual stenosis close to the femoral head. At this time we reinserted the 6 Macedonian sheath. Through the 6 Macedonian sheath we initially brought in a 12 x 40 balloon. This was insufflated in 2 different locations in tandem and each held into position for about a minute. We then followed this up with a 14 x 20 balloon. In a similar fashion the stenotic area of the iliac vein near the femoral head was plasty to again. Completion angiogram demonstrated excellent result.. We subsequently removed catheter wire in sheath. Pursestring suture was placed Direct pressure was held for 10 minutes. Sterile dressing was applied. Patient was brought to the recovery room with stable vitals. Interpretation of films: 1. Ultrasound was used to evaluate access site. Popliteal vein did note to have thrombus. Ultrasound was used to visualize needle entry. Image of ultrasound was saved on PACS 2. Vena cavogram demonstrated thrombus in the distal vena cava along the end attire iliofemoral system down into the popliteal vein. 3. Completion vena cavogram demonstrated resolution of clot. Conclusion: 1. Successful mechanical clot removal. 2. Anticoagulation status: Resume heparin drip in for hours. Tomorrow may start oral anticoagulation. This note is constructed using voice recognition software. While every effort has been made to ensure accuracy, practice coordinator errors may have been included. Thank you for allowing me to participate in the care of your patient. Yours sincerely, Jevon Michelle MD, FACS, R.P.V.I.
[2023-11-29] MEDS: Heparin Sodium,Porcine/1/2NS 25,000 UNIT/250 ML IV.SOLN 8.43 UNIT IVCONT (11:28)
[2023-11-29 11:53] LABS: PTT Heparin Drip > 200.0 SEC (53-77.9)
--- NOTE | 2023-11-29 12:07 | P.DS_ITS ---
DS: Providers Provider Date of Service: 11/29/23 Date of admission: 11/27/23 11:54 Date of discharge: 11/29/23 Primary care physician: Eusebio Rivera MD Consults: 11/28/23 07:00 Consult to Vascular Surgery Routine Consulting Provider: [facility] Reason for consultation: Extensive Left DVT, on heparin drip DS: Diagnosis Discharge Diagnosis (1) Deep vein thrombosis of lower extremity: Status: Acute DS: Summary Hospital Course Hospital Course: from initial hpi: 68-year-old female with a PMH significant for?peripheral vascular disease, hypothyroidism, and mood disorder who presents to the ED for evaluation of sudden onset leg swelling since last night. Patient denies any erythema or pain. No known trauma to the area. Has not had any recent prolonged travel. Patient reports being very active as she lives on on the 3rd floor and walks up and down the stairs daily, as well as regularly taking her grandkids to the park. No history of smoking, alcohol, or illicit substance use. States she has a past history of at least 2 prior DVTs 3 years ago at [facility] [place], where it appears she underwent surgical clot removal. However, review of records only reveals superficial saphenous vein thrombus treated with Eliquis. States her father at 55 due to ?thick blood?, though she is unable to further specify his PMH. Denies any known miscarriages. Patient otherwise denies any acute medical complaints. No fever, chills, nausea, vomiting, abdominal pain. No shortness a breath or difficulty breathing. Denies chest pain or pressure or palpitations. In the ED pt's vitals stable and WNL. Labs were grossly unremarkable and at baseline for patient. No leukocytosis. Stable H&H. No significant electrolyte abnormalities. Renal and hepatic function baseline. Venous to lower extremity a DVT within left common femoral vein, greater saphenous vein, proximal femoral vein, and profunda femoral vein. Also found minimal Doppler flow within the left popliteal vein with no significant flow within left posterior tibial vein. In the ED patient was started on a heparin drip. Pt will be admitted to the hospital for treatment and further evaluation of extensive DVT requiring heparin drip and vascular surgery consult hospital course: Patient was admitted for acute extensive left lower extremity DVT. Was started on IV heparin and seen by vascular performed thrombectomy. Patient is doing well after procedure and will be discharged on apixaban 10 mg b.i.d. for 7 days and then decrease to 5 mg b.i.d.. Would consider unprovoked for now and plan for indefinite treatment. For hypothyroid continued on levothyroxine. For her bipolar disorder was continued on Depakote, lurasidone and trazodone. Time Attestation Discharge Coordination Time (in mins): 34 Quality: Safe Use of Opioids Does Pt have an Active Cancer Diagnosis on the Problem List?: No Quality: Stroke Does the patient have a stroke diagnosis?: No Physical Exam Vital Signs: Vital Signs: Last Vital Signs Temp 97.6 F 11/29/23 11:27 Pulse 57 11/29/23 11:27 Resp 20 11/29/23 11:27 BP 162/95 H 11/29/23 11:27 Pulse Ox 100 11/29/23 11:27 O2 Del Method Room Air 11/29/23 11:27 O2 Flow Rate 2 11/29/23 03:15 BMI result Body Mass Index 34.2 LLE asymmetric edema DS: Data Data Completed and Pending Labs on day of discharge: Laboratory Results - last 24 hr 11/28/23 11/28/23 11/29/23 13:17 19:57 02:46 WBC RBC Hgb Hct MCV MCH MCHC RDW Plt Count MPV Absolute Nucleated RBC Nucleated RBC % (auto) aPTT Heparin Protocol 47.1 L D 90.3 H D 94.5 H Sodium Potassium Chloride Carbon Dioxide Anion Gap BUN Creatinine Estim Creat Clear Calc Estimated GFR Random Glucose Calcium 11/29/23 11/29/23 05:55 11:07 WBC 8.4 RBC 4.30 Hgb 13.0 Hct 39.5 MCV 91.9 MCH 30.2 MCHC 32.9 RDW 14.0 Plt Count 155 L MPV 9.1 L Absolute Nucleated RBC 0.000 Nucleated RBC % (auto) 0.0 aPTT Heparin Protocol > 200.0 H* D Sodium 141 Potassium 4.4 Chloride 110 H Carbon Dioxide 24 Anion Gap 11 L BUN 24 H Creatinine 0.92 Estim Creat Clear Calc 65.5 Estimated GFR > 60 Random Glucose 87 Calcium 9.5 Discharge Plan Discharge Anticipated Discharge Date/Time: 11/29/23 12:01 Patient Disposition: Home, Self-Care Discharge Diagnosis: DVT Referrals: Eusebio Rivera MD [Primary Care Provider] - 1 Week Discharge Medications: New Eliquis DVT-PE Treat 30D Start 5 mg (74 tabs) tablets,dose pack 5 mg PO BID Qty: 74 0RF Rx Instructions: 10mg bid for 1 week then decrease to 5mg bid Continued divalproex 500 mg tablet,delayed release (DR/EC) 500 mg PO BID trazodone 100 mg tablet 100 mg PO BEDTIME PRN (Reason: insomnia) levothyroxine 50 mcg tablet 50 mcg PO DAILY@0600 lurasidone 60 mg tablet 60 mg PO DAILY Discharge Orders: Discharge Order (Routine); Ordered 11/29/23 Ordered By: Lopez Whitney Diet: Advance to usual diet Activity on Discharge: As tolerated Stand Alone Forms: Patient Portal Discharge page Print Language: Syrian Care Plan Goals: manage dvt Health Concerns: dvt Plan of Treatment: eliquis 10mg bid for 7 days, then decrease to 5mg bid Assessment: see above
--- NOTE | 2023-11-29 12:31 | MHC.CM.PN ---
Pt is medically cleared for discharge home self-care today, pt has her own transportation home.
[2023-11-29 12:39] LABS: PTT Heparin Drip 181.4 SEC (53-77.9)
[2023-11-29 14:04] LABS: PTT Heparin Drip 94.8 SEC (53-77.9)
[2023-11-29] MEDS: Apixaban 5 MG TABLET 10 MG PO (16:53)
[2023-11-30 09:42] LABS: ACT 148 Celite s (79-173)
== END 2023-11-29 17:45 | disposition home or self-care (01) | DRG 272 ==
LOC: HO.ED 11:42 → HO.EDOVER 12:14 → HO.IMC 15:05
PROVIDERS: Physician Assistant; Student in an Organized Health Care Education/Training Program; Surgery Vascular Surgery; Admitting Provider Student in an Organized Health Care Education/Training Program; Emergency Provider Emergency Medicine; PCP Family Medicine; Visit Provider Internal Medicine
PROC: 06CN3ZZ Extirpation of Matter from Left Femoral Vein, Percutaneous Approach (ICD-10-PCS; principal; 2023-11-29 08:00)
DX: I82.412 Acute embolism and thrombosis of left femoral vein (principal); F31.9 Bipolar disorder, unspecified; E03.9 Hypothyroidism, unspecified; Z79.890 Hormone replacement therapy; Z79.899 Other long term (current) drug therapy
CPT/HCPCS: 36415; 37187; 80048; 80076; 83735; 85025; 85027; 85347; 85610; 85730; 93971; 99152; 99153; 99285; C1725; C1757; C1769; C1887; C1894; J1644

== ENCOUNTER → 2023-11-27 11:54 | Outpatient (BNV) | payer MEDICARE, MEDICAID, SELFPAY | PROVIDERS: Admitting Provider Student in an Organized Health Care Education/Training Program; Emergency Provider Emergency Medicine; PCP Family Medicine; Visit Provider Surgery Vascular Surgery | DX: I82.412 Acute embolism and thrombosis of left femoral vein (principal) | CPT/HCPCS: 37187; 37248; 99152; 99222 ==

== ENCOUNTER → 2023-11-27 11:54 | Outpatient (BNV) | payer MEDICARE, MEDICAID, SELFPAY | PROVIDERS: Admitting Provider Student in an Organized Health Care Education/Training Program; Emergency Provider Emergency Medicine; PCP Family Medicine; Visit Provider Surgery | DX: I82.412 Acute embolism and thrombosis of left femoral vein (principal) | CPT/HCPCS: 99222 ==

== ENCOUNTER → 2023-11-27 11:54 | Outpatient (BNV) | payer MEDICARE, SELFPAY | PROVIDERS: Admitting Provider Student in an Organized Health Care Education/Training Program; Emergency Provider Emergency Medicine; PCP Family Medicine; Visit Provider Student in an Organized Health Care Education/Training Program | DX: I82.412 Acute embolism and thrombosis of left femoral vein (principal) | CPT/HCPCS: 99223; 99232; 99239 ==

== ENCOUNTER 2023-12-29 11:53 | Outpatient (AMB) | payer MEDICARE, MEDICAID, SELFPAY ==
--- NOTE | 2023-12-29 11:53 | A.OFFVIS_ITS ---
Intake Visit Reasons: 1m follow up s/p thrombectomy 11/29/23 Allergies amoxicillin [AMOXICILLIN] Allergy (Intermediate, Verified 12/29/23 11:54) RASH clindamycin [CLINDAMYCIN] Allergy (Unknown, Verified 12/29/23 11:54) UNKNOWN HPI HPI 1m follow up s/p thrombectomy 11/29/23: Details: Very pleasant 68-year-old female who is status post left lower extremity mechanical venous thrombectomy and plasty of left iliac vein presents for outine postprocedure follow-up. She reports that the left leg does feel significantly better. Although it is still swollen much better since she was in the hospital. She continues to remain on Eliquis for anticoagulation. She now presents for routine follow-up. [facility] Medical History (Updated 12/29/23 @ 14:31 by Jevon Michelle MD) Bipolar disorder Hypothyroidism PVD (peripheral vascular disease) Surgical History (Updated 11/29/23 @ 07:21 by Keesha Seymour RN) H/O varicose vein ligation No pertinent past surgical history Social History Household Members: None Housing: Apartment Do you presently have visiting nurse or other home services: No Patient Tobacco Use Status: Never used Tobacco service: No Review of Systems Const All systems reviewed & are unremarkable except as noted in HPI and below Reports no additional complaints ENT Reports Normal hearing present Card Denies chest pain, Denies chest pain at rest, Denies chest pain with activity and Denies pedal edema Resp Denies cough GI Denies abdominal pain Musc Denies abnormal gait, Denies muscle cramps and Denies radiating pain into limb Skin/Breast Denies skin ulcer and Denies wounds Neuro Reports Normal hearing present and Denies abnormal gait Psych Reports no additional complaints Physical Exam Const General: cooperative, healthy appearing and comfortable Orientation/consciousness: oriented to person, oriented to place and oriented to time HEENT Head: Yes normal to inspection Neck Neck: Yes normal visual inspection Carotids: no bruits Chest Chest palpation & inspection: normal inspection of the chest Resp Effort & Inspection: normal respiratory effort and able to speak in complete sentences Auscultation: clear to auscultation bilaterally, no crackles, no rales, no rhonchi and no wheezes Cardio Rate: regular rate Rhythm: regular rhythm Heart sounds: S1 normal heart sound present and S2 normal heart sound present Bruits: no carotid bruits Peripheral pulses: Peripheral pulses 2+ throughout GI Inspection: Yes normal to inspection Skin Wounds: no wounds Hair: normal Neuro General: oriented to person, oriented to place and oriented to time Cranial nerves: Yes CN's II-XII intact bilaterally and Yes Normal hearing present Cognition (Neuro): normal cognition Motor exam (neuro): 5/5 motor strength present throughout Extrem Other: venous exam: +2 edema left greater than right. Stitch from left popliteal fossa was removed. 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 The concern here is that she may have an element of May-Thurner. I have taken the liberty of ordering CT venogram to better elucidate this. She will follow up with us after testing. Thank you for allowing us to assist in her care. (2) Deep vein thrombosis of lower extremity: Comment: -11/29/2023 left lower extremity mechanical venous thrombectomy Code(s): I82.409 - Acute embolism and thrombosis of unspecified deep veins of unspecified lower extremity Category: Medical Qualifiers: Affected thrombotic vein of extremity: femoral Chronicity: acute Laterality: left Qualified Code(s): I82.412 - Acute embolism and thrombosis of left femoral vein Plan: See op note Orders: Orders CT angio abdomen pelvis 1 Week I87.1 - Compression of vein Blood Urea Nitrogen Today I87.1 - Compression of vein Creatinine Today I87.1 - Compression of vein Coding Level of Care Code Est Pt Level 4 (76560) Diagnoses May-Thurner syndrome I87.1 Deep vein thrombosis of lower extremity I82.412 Affected thrombotic vein of extremity: femoral Chronicity: acute Laterality: left
== END 2023-12-29 12:06 | disposition home or self-care (01) ==
PROVIDERS: PCP Family Medicine; Visit Provider Surgery Vascular Surgery
DX: I87.1 Compression of vein (principal); I82.412 Acute embolism and thrombosis of left femoral vein
CPT/HCPCS: 99214

== ENCOUNTER → 2023-12-29 11:53 | Outpatient (BNVA) | payer MEDICARE, MEDICAID, SELFPAY | PROVIDERS: PCP Family Medicine; Visit Provider Surgery Vascular Surgery | DX: I87.1 Compression of vein (principal); I82.412 Acute embolism and thrombosis of left femoral vein; Z79.01 Long term (current) use of anticoagulants | CPT/HCPCS: 99212 ==

== ENCOUNTER 2024-01-05 14:09 | Outpatient (REF) | payer MEDICARE, MEDICAID, SELFPAY ==
--- NOTE | ~2024-01-05 | CT_ITS ---
EXAMINATION: CT ANGIOGRAPHY ABDOMEN AND PELVIS WITHOUT AND WITH CONTRAST CLINICAL INFORMATION: I87.1 - Compression of vein. Concern of May-Thurner syndrome. COMPARISON: None available. TECHNIQUE: Initial noncontrast localizing mobile service rv technician images were obtained. A timing bolus at the level of the celiac artery was calculated. Subsequently, arterial phase multidetector volumetric imaging was performed through the abdomen and pelvis following the administration of 80 mL Omnipaque 300 intravenous contrast. No contrast reaction reported. Sagittal and coronal reformatted images were obtained on the technologist workstation. After extensive post-processing on a dedicated 3-D workstation, 3-D reformatted images were uploaded to PACS and reviewed as well. This CT examination was performed using dose optimization techniques as appropriate, variously including the following: *Automated exposure control *Adjustment of mA and/or kV according to patient size (this includes techniques or standardized protocols for targeted exams where dose is matched to indication/reason for exam; i.e. extremities or head) *Use of iterative reconstruction technique DLP: 872 mGy-cm FINDINGS: VASCULAR: 1. Abdominal Aorta: Mild scattered atherosclerosis of aorta and its branches. No aneurysm or dissection of the abdominal aorta. No penetrating atheromatous ulcer. 2. Iliac Arteries: The common, external and internal iliac arteries are patent. Proximal femoral vessels are patent. 3. Mesenteric Arteries: Celiac artery is patent. Superior mesenteric artery patent. Inferior mesenteric artery patent. 4. Renal arteries: Single renal arteries bilaterally. Renal arteries are patent and without stenosis or other vascular anomaly. 5. Veins: No significant compression of the left common iliac vein. The remaining iliofemoral veins, IVC, and portal vein are unremarkable. NONVASCULAR: Lung Bases: The visualized lung bases are clear. Liver: Homogeneous in attenuation. Normal in size. No focal lesion. Gallbladder: No gallbladder wall thickening, pericholecystic fluid, or pericholecystic stranding. Biliary System: No intrahepatic or extrahepatic biliary ductal dilation. Pancreas: Homogeneous in attenuation. No pancreatic ductal dilatation. No focal lesion. Spleen: Normal in size. Adrenal Glands: No focal nodule. Genitourinary: Simple cyst in the interpolar region of the left kidney likely represents a benign cyst and does not require further imaging follow-up. Multiple bilateral sub-5 mm hypodensities are too small to characterize but statistically represent cysts. Bilateral kidneys demonstrate symmetric enhancement. No perinephric fluid collection. No renal calculi. No hydroureteronephrosis. GI: The visualized alimentary tract is normal in course. No bowel wall thickening. No dilated loops of bowel to suggest obstruction. Appendix: The appendix is seen in its entirety and is unremarkable. Peritoneum: No pneumoperitoneum. No ascites. No intra-abdominal fluid collection. Pelvic Structures: The bladder is fluid filled without focal wall thickening. The uterus is unremarkable. No adnexal mass. Lymph Nodes: No pathologically enlarged abdominal or pelvic lymph nodes. Soft Tissues/Musculoskeletal: Multilevel degenerative changes of the spine. CT/CT angio abdomen pelvis IMPRESSION: VASCULAR: No evidence of May Thurner compression of the left common iliac vein, as clinically queried. NONVASCULAR: No acute abnormality within the abdomen or pelvis. Fleischner guidelines were followed. Electronically signed by: Chelsie Garcia MD 01/18/2024 11:57 PM EST
[2024-01-05] MEDS: iohexoL 350 MG/ML 100 ML INFUS..BTL IV (16:02)
[2024-01-13 15:31] LABS: GFR POC 57
== END 2024-01-05 14:10 | disposition home or self-care (01) ==
LOC: HO.CT 14:09
PROVIDERS: Visit Provider Surgery Vascular Surgery
DX: I87.1 Compression of vein (principal)
CPT/HCPCS: 74174; 82565; Q9967

== ENCOUNTER 2024-03-15 13:07 | Outpatient (AMB) | payer MEDICARE, MEDICAID, SELFPAY ==
--- NOTE | 2024-03-15 13:08 | MHC.OFFVIS ---
Vital Signs 03/15/24 13:13 BP 128/74 Blood Pressure Location Rt brachial Position Sitting Intake Visit Reasons: follow up s/p CTA Abdomen/Pelvis 01/05/24 Organ Installer Required: No Accompanied by: Self / Same As Patient Allergies amoxicillin [AMOXICILLIN] Allergy (Intermediate, Verified 12/29/23 11:54) RASH clindamycin [CLINDAMYCIN] Allergy (Unknown, Verified 12/29/23 11:54) UNKNOWN HPI HPI follow up s/p CTA Abdomen/Pelvis 01/05/24: Details: Very pleasant 68-year-old female presents for routine follow-up regarding left lower extremity DVT. She had actually undergone left lower extremity mechanical venous thrombectomy and plasty on 11/29/2023. She reports that her left lower extremities doing extremely well. She now presents for routine follow-up after CT scan. Of note she has significantly large varicosities throughout the left leg. She did report prior venous ablation by Dr. Clements many years prior. Now presents for CT scan result follow-up. [facility] Medical History (Updated 03/15/24 @ 13:37 by Jevon Michelle MD) Bipolar disorder Hypothyroidism PVD (peripheral vascular disease) Surgical History (Updated 11/29/23 @ 07:21 by Keesha Seymour RN) H/O varicose vein ligation No pertinent past surgical history Social History (Updated 03/15/24 @ 13:13 by Ilana Ro CMA) Household Members: None Housing: Apartment Do you presently have visiting nurse or other home services: No Alcohol intake: current Alcohol intake frequency: holidays/special occasions only Patient Tobacco Use Status: Never used Tobacco service: No Review of Systems Const Denies chills, Denies fatigue, Denies fever(s), Denies weight gain and Denies weight loss ENT Denies dizziness Card Denies chest pain, Denies leg edema, Denies lightheadedness, Denies palpitations, Denies dyspnea on exertion, Denies orthopnea and Denies other Resp Denies cough and Denies dyspnea on exertion GI Denies hematochezia and Denies change in stool character Musc Details: pain over varicosities, aching of lower extremities, swelling, cramping, heaviness and tiredness, itching Denies abnormal gait, Denies muscle weakness, Denies numbness, Denies radiating pain into limb and Denies tingling Skin/Breast Reports pruritus and Denies wounds Neuro Denies abnormal gait, Denies dizziness, Denies numbness and Denies tingling Psych Denies no additional complaints Endo Denies fatigue and Denies palpitations Physical Exam Vital Signs: Last Vital Signs BP 128/74 03/15/24 13:13 Const General: cooperative, healthy appearing and comfortable Orientation/consciousness: oriented to person, oriented to place and oriented to time Neck Carotids: no bruits Chest Chest palpation & inspection: normal inspection of the chest and normal palpation of entire chest wall Resp Effort & Inspection: normal respiratory effort and able to speak in complete sentences Cardio Rate: regular rate Heart sounds: S1 normal heart sound present and S2 normal heart sound present Peripheral pulses: Peripheral pulses 2+ throughout GI Inspection: Yes normal to inspection Skin Other: +2 edema, large rope-like varicosities greater than 4 mm CEAP Classification C4 - skin color changes Ep - Etiology Primary As - superficial veins P - reflux General skin exam: dry skin Neuro General: oriented to person, oriented to place and oriented to time Extrem Right lower extremity: full ROM, normal capillary refill and edema Left lower extremity: full ROM, normal capillary refill and edema Psych Mental Status: mental status grossly normal Results Reviewed Results Reviewed: CT angiogram dated 01/05/2024 demonstrates no evidence of venous compression of the left iliac. Written report and images were reviewed. Assessment & Plan Assessment & Plan (1) Varicose veins of left lower extremity with inflammation: Code(s): I83.12 - Varicose veins of left lower extremity with inflammation Category: Medical Plan: Patient has symptomatic significant large varicosities a left lower extremity. At the current time she would like to conservatively manage these. She does report prior venous ablation on that side. I requested that she continue use of compression, elevation, exercise. She will follow up with us in 6 months' time with venous insufficiency testing. Thank you for allowing us to assist in her care. (2) Deep vein thrombosis of lower extremity: Comment: -11/29/2023 left lower extremity mechanical venous thrombectomy Code(s): I82.409 - Acute embolism and thrombosis of unspecified deep veins of unspecified lower extremity Category: Medical Qualifiers: Affected thrombotic vein of extremity: femoral Chronicity: acute Laterality: left Qualified Code(s): I82.412 - Acute embolism and thrombosis of left femoral vein Plan: DVT status is stable. No evidence of May-Thurner on CT scan. Will require long-term anticoagulation. She will continue to follow us for her venous disease evaluation. She will see us in 6 months time. Orders: Orders US venous duplex LE LT 6 Months I83.12 - Varicose veins of left lower extremity with inflammation Coding Level of Care Code Est Pt Level 4 (45467) Complex EM visit Add On G2211 Diagnoses Varicose veins of left lower extremity with inflammation I83.12 Deep vein thrombosis of lower extremity I82.412 Affected thrombotic vein of extremity: femoral Chronicity: acute Laterality: left
[2024-03-15 13:13] VITALS: BP 128/74
--- OUTSIDE RECORDS SUMMARY | 2024-03-15 14:35 | XMS_ITS | Continuity of Care Document ---
Author Organization [facility] Address [address] [place] [address] Dr [address] [place] [address] Phone Care Team Providers Care Grinding Wheel Operator Name Role Phone Tyree ROSS FACS RVT Madina PENA Unavailable Unavailable Allergies, Adverse Reactions, Alerts Substance Reaction Status Criticality haloperidol Active No Information amoxicillin Active No Information Medications Medication Instructions Dosage Effective Dates (start - stop) Status Comments levothyroxine 50 mcg capsule - Active Latuda 60 mg tablet - Active trazodone 100 mg tablet - Ac tive benztropine 1 mg tablet - Ac tive divalproex ER 500 mg tablet,extended release 24 hr - Active Procedures Procedure Date Inj Scleros Solut; Mx Veins 1 4 Ultrason Guidan Needle Bx-rad 4 Duplex Scan-extrem Veins; Uni/ 24 Endovenous Laser, 1st Vein Offic/outpt E&m Estab 5 Min Trial - Tele medicine Office/Oupt E&M New Pt 30 Mins 23 Duplex Scan-extrem Veins; Uni/ 23 Office/Outpt E&M Established 25 Mins Mar Advance Directives Directive Yes / No Effective Date File Name No Information Encounters Encounter Description Practice Location Reason(s) For Visit Diagnoses Date Provider Providers Copied on Encounter [facility], [address] [place] [address] Dr Kaiser [address], [id number], [place] tel:[phone] [facility] No Information 4 Tyree Gomez. [address] [address], [place], [address], [place]. tel:[phone] Referring Provider: Rosa Elena Albert CNP, [address] [place] [address], [place], [address]. tel:[phone] [facility], [address] [place] [address] Dr Kaiser [address], [id number], [place] tel:[phone] [facility] Varicose veins of left lower extremity with other complications 4 Judd ROSS RVT, BECKY Sharif. [address] [place] [address], [place], [place], [id number] , [place]. tel:[phone] Referring Provider: Rosa Elena Albert CNP, [address] [place] [address], [place], [address]. tel:[phone] [facility], [address] [place] [address] Dr Kaiser [address]Suite [place], [id number], [place] tel:[phone] [facility] Encounter for follow-up examination after completed treatment for conditions other than malignant neVaricose veins of left lower extremity with pain 4 Judd ROSS RVT, BECKY Sharif. [address] [place] [address], [place], [place], [id number] , [place]. tel:[phone] Referring Provider: Rosa Elena Albert CNP, [address] [place], [place] [address] , [place], [address]. tel:[phone] [facility], [address] [place] [address] Dr Kaiser [address], [id number], [place] tel:[phone] [facility] Chronic venous hypertension (idiopathic) with inflammation of left lower extremity 3 Judd ROSS RVT, BECKY Sharif. [address] [place] [address], [address], [place], [id number] , [place]. tel:[phone] Referring Provider: Rosa Elena Albert CNP, [facility] [address], [place], [address]. tel:[phone] Offic/outpt E&m Estab 5 Min Trial - Telemedicine [facility], [address] [place] [address] [facility] [address], [place], [id number], [place] tel:[phone] [facility] [place] [facility] [place] Chronic venous hypertension (idiopathic) with other complications of left lower extremity 3 Judd ROSS, ALEXYT, BECKY Sharif. [address] [place] [address] Suite [facility], [facility], [place], [id number] , [place]. tel:[phone] Referring Provider: Rosa Elena Albert CNP, [facility] [address], [place], [address]. tel:[phone] Office/Oupt E&M New Pt 30 Mins [facility], [address] [place] [address] [address], [place], [id number], [place] tel:[phone] [facility] [place] Varicose veins of left lower extremity with inflammationLo calized edemaPruritus, unspecified Dec- 3 Judd ROSS, ALEXYT, BECKY Sharif. [address] [place] [address], [address], [place], [place], [id number] , [place]. tel:[phone] Referring Provider: Rosa Elena Albert CNP, [facility] [address], [place], [address]. tel:[phone] [facility], [address] [place] [address] [address], [place], [id number], [place] tel:[phone] [facility] [place] Varicose veins of left lower extremity with pain Dec- 3 Tyree ROSS FACS RVT BECKY Gomez. [address] [facility], [address], [place], [address], [place]. tel:[phone] Referring Provider: Ros aElena Albert CNP, [facility] [address], [place], [address]. tel:[phone] Office/Outpt E&M Established 25 Mins [facility], [address] [facility] [address], [place], [id number], [place] tel:[phone] [facility] [place] Venous insufficiency (chronic) (peripheral) 3 Tyree ROSS FACS RVT BECKY Gomez. [address] [facility], [address], [place], [address], [place]. tel:[phone] Referring Provider: Rosa Elena Albert MDM SR, [address], [place], [address]. tel:[phone] Family History Family Member Type Diagnosis Age At Onset No Information Payers Payer name Insurance type Covered alliance party ID Authoriza titrini(s) [facility] [id number] Medical Assistance [facility] [id number] Social History Type Description Quantity Date Captured Comments Alcohol Use Details Unknown Caffeine Use Details Unknown Tobacco Use Status No Information Smoking Status No Information Sex Female Chief Complaint And Reason For Visit No Information Reason For Referral Reason For Referral No Information Plan Of Treatment Date Type Action Status Goal Diet education completed Referral Ordered: Weight management: Referral to physician timeframe: 3 Months (related to Body mass index (BMI) 33.0-33.9, adult) ordered History Of Present Illness Encounter Date Complaint History Of Prese nt Illness No Information Functional Status Date Functional Assessmen t No Information Instructions Date Instruction Additional Infor mation Continue compression stocking us e Related to Chrn Vns Hyprtnsn w/Compl (Pain Edema Swelling); LEFT Patient education booklet given Related to Chrn Vns Hyprtnsn w/Compl (Pain Edema Swelling); LEFT Lifestyle education Related to B mirian mass index (BMI) 33.0-33.9, adult Patient education booklet given Related to Varicose veins of left lower extremity with inflammation Pre and post instruc tions reviewed and provided Related to Varicose veins of left lower extremity with inflammation Diet education Related to Body mass index (BMI) 33.0-33.9, adult Giving Encouragement to exercise Related to Body mass index (BMI) 33.0-33.9, adult Continue compression stocking us e Related to Venous Insufficiency (Chronic / Peripheral) Patient education booklet given Related to Venous Insufficiency (Chronic / Peripheral) Assessments Type Assessment Date No Information Patient Care Teams Name Effective Dates (start - stop) Status Members No Information
--- OUTSIDE RECORDS SUMMARY | 2024-03-15 14:35 | XMS_ITS | Continuity of Care Document ---
Author Organization [facility], NICOLA Guillen 2nd floor Address [address] [place] [address] Assessment No assessment recorded. Plan of Treatment Reminders Order Date Submit Date Provider Last Modified By Organization Details Last Modified Time Details Appointments None record ed. Lab None record ed. Referral None record ed. Procedures None record ed. Surgeries None record ed. Imaging None record ed. Medication Orders None record ed. Patient TargetsNo targets recorded. Patient InstructionsNo instructions recorded. Reason for Referral None Reported. Procedures Surgical History Date Name Laterality Status Provider Name and Address Organization Details Recorded Time 5 Shoulder Depo 1cc Injection, Bilateral completed Jerzy Strickland PA-C [address] [facility], [place], [address], [facility] 03/13/2024 11:04:45 4 Sports Shoulder completed Jerzy Strickland PA-C [address] [facility], [place], [address], [facility] 11/08/2023 10:24:46 4 Sports Shoulder completed Jerzy Strickland PA-C [address], [place], [address], [facility] 08/03/2023 09:00:14 Imaging Results None recorded. Procedure Notes None recorded. Medical Equipment None Reported. Allergies No known drug allergies Medications Name Sig Start Date Stop Date Status Note LastModified by Organization Details LastModified Time prednisone 10 mg tablet PLEASE SEE ATTACHED FOR DETAILED DIRECTION S 03/13 completed Not Available Not Available Not Available trazodone 50 mg tablet TAKE 1-2 TABLETS BY MOUTH AT BEDTIME NEEDED FOR INSOMNIA active Not Available Not Available No t Available azithromyci n 250 mg tablet TAKE 2 TABLETS BY MOUTH TODAY, THEN TAKE 1 TABLET DAILY FOR 4 DAYS 03/13 completed Not Available Not Available Not Available divalproex 500 mg tablet,tra yed release TAKE 1 TABLET BY MOUTH TWICE A DAY active Not Available Not Available No t Available trazodone 100 mg tablet TAKE 1-2 TABLETS BY MOUTH AT BEDTIME NEEDED FOR INSOMNIA active Not Available Not Available No t Available levothyroxi ne 50 mcg tablet TAKE 1 TABLET BY MOUTH EVERY DAY active Not Available Not Available No t Available benztropine 1 mg tablet TAKE 1 TABLET BY MOUTH TWICE A DAY active Not Available Not Available No t Available Eliquis 5 mg tablet TAKE 1 TABLET BY MOUTH TWICE A DAY active Not Available Not Available No t Available lurasidone 60 mg tablet TAKE 1 TABLET BY MOUTH EVERY DAY active Not Available Not Available No t Available Eliquis DVT-PE Treatment 30-Day Starter 5 mg (74 tablets) in dose pack TAKE 2 TABS TWICE A DAY FOR 1 WEEK THEN DECREASE TO 1 TAB TWICE A DAY active Not Available Not Available No t Available Vitals Date Recorded Body height Body mass index (BMI) Body weight Provider Name and Address Organization Details Last Updated DateTime 03/13/2024 162.56 cm 32.6 kg/m2 12336.55 g Roberta Perez [place] - [facility] 03/13/2024 10:26:17 Social History None recorded. Functional Status None recorded. Mental Status None recorded. Family History Nothing Reported. Medical History Condition Response Coronary Artery Disease N Anxiety/Depression Y Emphysema N COPD N Pacemaker N Vascular Disease N Heart Trouble N Gastrointestinal Disease N Autoimmune disease N Inflammatory Joint disease N Orthotics N Arthritis N Blood Clot N Acid Reflux (GERD) N Cancer N Stroke N Circulation Problems N Rheumatoid Arthritis N Arrhythmia N Headaches N Fibromyalgia N Allergies/Hayfever N Breathing or lung disorders N Nerve Disorders N Thyroid Problems Y Kidney/Bladder Problems N Anemia N Heart Attack ([place]) N Cholesterol N Diabetes N Bleeding Disorder N Seizures/Epilepsy N AIDS/HIV N Congestive Heart Failure (CHF) N Asthma N Peripheral Vascular Disease N Sleep Apnea N Hepatitis N Heart Disease N Pulmonary Embolism N Hypertension N Osteoporosis N Gynecological HistoryNo gynecological history recorded. Obstetrics History GPAL:G 0 P 0 0 0 0 Past Encounters Encounter ID Performer Location Encounter Start Date Encounter Closed Date Diagnosis/Indication Diagnosis SNOMED-CT Code Diagnosis ICD10 Code Diagnosis Note [id number] NICHOLE Paz [address] [place] [address] 03/13/2024 08:26:18 03/13/2024 11:05:19 Rotator cuff arthropathy of left shoulder 0063556030 9245710 M12.812 Rotator cu ff arthropathy of right shoulder [id number] 0965636 M12.811 Health Concerns Section Related Observation LastModified by Organization Detai ls LastModified Time None Recorded Concern Status LastModified by Organization Details LastModified Time None Recorded Payers Encounter Date Sequence Insurance Name Policy Number Policy Campbell Covered Member ID Campbell Member ID Guarantor Name 03/13/2024 2 [place] [facility] Kiki Lopes [id number] Rajni Mobley 03/13/2024 1 [employer] (MEDICARE REPLACEMENT/A DVANTAGE - PPO) Rajni Mobley [id number] Rajni Mobley Notes Date Note Type Note Provider Name and Address Organization Details Recorded Time 03/13/2024 text/html I am seeing the patient today under the supervision of Dr. Contreras who was available but who did not see the patient.REASON FOR VISITPatient comes to the office with known degenerative rotator cuff disease. The patient has done well with conservative management for their right shoulder pain. Has had increasing discomfort over the past several weeks without injury. Pain is generalized about the shoulder. Off and on discomfort is noted at night.PAST MEDICAL/SURGICAL HISTORYCurrent medications per intake sheet.PHYSICAL FINDINGSThe patient is well appearing, in no apparent distress, alert and oriented to person, place and time. Gait is symmetric. No significant swelling, warmth or erythema about either shoulder. There is mild tenderness to palpation about the shoulder. Active range of motion of the shoulder is near full with mild to moderate pain through mid range manipulations. 4/5 strength of the shoulder, but the rotator cuff seems to fire well. Good stability of the shoulder. Peripheral, vascular, lymphatic examination, skin, neurologic coordination, reflexes, sensation are within normal limits.ASSESSMENTDe generative rotator cuff disease of bilateral shouldersPLANThe patient has done well with conservative management in regards to the right shoulder. Continued conservative management recommended. Moderating activities with the upper extremity recommended also.Injection was performed into the subacromial space. Injected 40mg of Kenalog and 8cc of 1/4% Marcaine under sterile conditions into the left shoulder subacromial space. Patient tolerated the injection well. Moderating activities with the upper extremity recommended. The patient will follow up prn. Jerzy Strickland PA-C [address] [facility] [address], [place], [address], [facility] - [facility] 03/13/2024 11:05:18 OBGyn Episode No OBEpisode recorded.
== END 2024-03-15 13:30 | disposition home or self-care (01) ==
PROVIDERS: PCP Family Medicine; Visit Provider Surgery Vascular Surgery
DX: I83.12 Varicose veins of left lower extremity with inflammation (principal); I82.412 Acute embolism and thrombosis of left femoral vein
CPT/HCPCS: 99214; G2211

== ENCOUNTER → 2024-03-15 13:07 | Outpatient (BNVA) | payer MEDICARE, MEDICAID, SELFPAY | PROVIDERS: PCP Family Medicine; Visit Provider Surgery Vascular Surgery | DX: I83.12 Varicose veins of left lower extremity with inflammation (principal); I82.412 Acute embolism and thrombosis of left femoral vein | CPT/HCPCS: 99212 ==

== ENCOUNTER 2024-08-16 14:21 | Emergency (ER) | payer MEDICARE, MEDICAID, SELFPAY ==
--- NOTE | ~2024-08-16 | XR_ITS ---
EXAMINATION: XR CHEST CLINICAL INFORMATION: cough x2 weeks, difficulty breathing COMPARISON: None available. TECHNIQUE: 2 views of the chest were obtained. FINDINGS: Heart size is within normal limits. The aorta is tortuous. Hilar structures are unremarkable. The lungs are clear. Flowing osteophytes are present throughout much of the thoracic spine with mild disc space narrowing. There are degenerative changes involving the right glenohumeral joint with osteophytes. There is a possible right subacromial spur. 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 Electronically signed by: Robbie Ocasio MD 08/16/2024 04:29 PM EDT
[2024-08-16 14:34] VITALS: BP 110/75; PULSE 78; RESP 18; TEMP 36.9; O2SAT 97; BMI 32.3
--- NOTE | 2024-08-16 14:35 | ED_ITS ---
HPI - General Adult General Chief complaint: Upper Respiratory Symptoms Stated complaint: running nose coughing Time Seen by Provider: 08/16/24 15:14 Source: patient Mode of arrival: ambulatory Limitations: no limitations History of Present Illness ED Provider: KARLIE SEGURA PA-C HPI narrative: 69 year old female with pmhx significant for DVT on eliquis, seasonal allergies presents to the ED today for evaluation of dry cough, runny nose and sneezing x2 weeks. Reports history of seasonal allergies, states this feels similar. Reports her is currently in the ED with similar symptoms, prompting her to be evaluated while here. Denies history of tobacco use. Denies recent travel or long car rides. Denies hormone use. Denies new lower extremity pain/swelling. She does have a history of DVT, compliant with Eliquis. No missed doses. Denies any fever, chills, sinus pain/pressure, sore throat, chest pain, shortness of breath, wheezing, hemoptysis. Related Data Home Medications ?Medication ?Instructions ?Recorded ?Confirmed divalproex 500 mg tablet,delayed 500 mg PO BID 11/27/23 11/27/23 release levothyroxine 50 mcg tablet 50 mcg PO DAILY@0600 11/27/23 11/27/23 lurasidone 60 mg tablet 60 mg PO DAILY 11/27/23 11/27/23 trazodone 100 mg tablet 100 mg PO BEDTIME PRN insomnia 11/27/23 11/27/23 Previous Rx's ?Medication ?Instructions ?Recorded apixaban 5 mg (74 tabs) tablets in 5 mg PO BID #74 ea 11/29/23 a dose pack (Eliquis DVT-PE Treat 30D Start) benzonatate 100 mg capsule 100 mg PO BID PRN cough #20 caps 08/16/24 Allergies Allergy/AdvReac Type Severity Reaction Status Date / Time amoxicillin [AMOXICILLIN] Allergy Intermediate RASH Verified 08/16/24 14:35 clindamycin [CLINDAMYCIN] Allergy Unknown UNKNOWN Verified 12/29/23 11:54 Review of Systems Review of Systems: Yes all other systems are reviewed and are negative PMFSH Past Medical History Attestation statement: The following information was validated with the patient. Source: old records reviewed and nursing notes reviewed Medical History Bipolar disorder Hypothyroidism PVD (peripheral vascular disease) Surgical History H/O varicose vein ligation No pertinent past surgical history Social History Social History Household Members: None Housing: Apartment Do you presently have visiting nurse or other home services: No Alcohol intake: current Alcohol intake frequency: holidays/special occasions only Patient Tobacco Use Status: Never used Tobacco Advance Directives: No Advance Directives Information Provided: No service: No Physical Exam ED Vital Signs: Vital Signs - 24 hr 08/16/24 14:34 Temperature 98.5 F Pulse Rate 78 Respiratory Rate 18 Blood Pressure 110/75 Pulse Oximetry 97 Oxygen Delivery Method Room Air BMI result Body Mass Index 32.3 Vital signs stable, afebrile, not hypoxic or tachycardic General: Well appearing, in no acute distress. Skin: Warm, dry, intact. No rashes or lesions. Head: Normocephalic, atraumatic. Sinuses nontender to percussion. EENT: Hearing is intact b/l. Conjunctiva clear. Sclera is anicteric. PERRLA. EOM intact. Moist mucous membranes.? Cardiac: Chest wall symmetric. RRR. Lungs: Normal respiratory effort without accessory muscle use. CTA bilaterally. No rales, rhonchi, or wheezes.? Back: No midline spinous or paraspinal tenderness. No step off deformity. Ext: Varicose veins noted to bilateral lower extremities. No calf pain/swelling/erythema. No pitting edema. Neuro: AOx3. Normal speech. Ambulating with steady gait. Course Course Course Narrative: RME, this is a rapid medical exam performed by Darian Rock please refer to primary provider for complete H&P- 69-year-old female presents for evaluation of cough, congestion, runny nose. Her has similar symptoms. Plan for viral swabs Reevaluation(s) Reevaluation #1: Negative COVID, flu, RSV. Chest x-ray without evidence of pneumonia. Will send Kilo Jacobson to pharmacy. Advised [id number] allergy medications. She is well-appearing, has remained stable. Patient has remained stable throughout ED visit today. Discussed worrisome signs and symptoms and when to return to the ED. All questions answered at this time. Patient is agreeable with disposition and stable for discharge. Medical Decision Making Medical Decision Making [facility] Narrative: 69 year old female with pmhx significant for DVT on eliquis, seasonal allergies presents to the ED today for evaluation of dry cough, runny nose and sneezing x2 weeks. Vital signs are stable. Afebrile. Not tachycardic or hypoxic. She is well-appearing and in no acute distress. On exam, no respiratory distress noted. Lungs are CTA bilaterally without rales, rhonchi or wheezes. Bilateral lower extremities with varicose veins. No pitting edema. No calf tenderness bilaterally. No calf redness or swelling. Differential diagnosis includes viral syndrome, bronchitis, pneumonia. Unlikely DVT, PE, ACS, arrhythmia. Plan for viral swabs, chest x-ray and re-evaluation. Differential Diagnosis Differential Diagnoses: The differential diagnosis associated with the presentation includes as above. Admission/Observation Indicated Lab Data [facility] Lab Attestation statement: I reviewed the patient's lab results. As above Labs: Lab Results 08/16/24 Range/Units 14:54 Influenza Type A (PCR) NEGATIVE (Negative) Influenza Type B (PCR) NEGATIVE (Negative) RSV RNA Qual (PCR) NEGATIVE (Negative) SARS-CoV-2 RNA (RT-PCR) NEGATIVE (Negative) Independent Interpretation I performed an independent interpretation of an: Plain X-Ray Interpretation: Chest x-ray without infiltrate or consolidation Radiology Impression Discussion of test interpretation with radiology: I have reviewed the radiologist's reading. Radiologist Impression: Date of Service: 08/16/24 Procedure(s): XR chest 2V Accession Number(s): [id number] cc: Rosa Elena Albert NP; Karlie Segura~ EXAMINATION: XR CHEST CLINICAL INFORMATION: cough x2 weeks, difficulty breathing COMPARISON: None available. TECHNIQUE: 2 views of the chest were obtained. FINDINGS: Heart size is within normal limits. The aorta is tortuous. Hilar structures are unremarkable. The lungs are clear. Flowing osteophytes are present throughout much of the thoracic spine with mild disc space narrowing. There are degenerative changes involving the right glenohumeral joint with osteophytes. There is a possible right subacromial spur. External Record Review External record reviewed: Inpatient record Prescription Management I considered prescription management with: Other (Tessalon) Social Determinants Patient?s care significantly limited by Social Determinants of Health including: Other Social Determinant of Health Critical Care Time Critical Care Time Critical Care Time: No Discharge Plan Discharge Clinical Impression: Upper respiratory virus Patient Disposition: Home, Self-Care Instructions: Viral Syndrome (ED) Additional Instructions: Your workup today is reassuring. You tested negative for COVID, flu, RSV. Your chest x-ray does not show pneumonia. You likely have a viral infection v seasonal allergy. This is not warrant treatment with antibiotics. I am sending Kilo Jacobson to your pharmacy for you to take as needed for cough. You may also trial over the counter zyrtec or claritin. Follow up with your outpatient providers. Return with any new or worsening symptoms. In the case of an emergency call 911. Prescriptions: New benzonatate 100 mg capsule 100 mg PO BID PRN (Reason: cough) Qty: 20 0RF No Action divalproex 500 mg tablet,delayed release (DR/EC) 500 mg PO BID trazodone 100 mg tablet 100 mg PO BEDTIME PRN (Reason: insomnia) levothyroxine 50 mcg tablet 50 mcg PO DAILY@0600 lurasidone 60 mg tablet 60 mg PO DAILY Leticiaqukris DVT-PE Treat 30D Start 5 mg (74 tabs) tablets,dose pack 5 mg PO BID Qty: 74 0RF Rx Instructions: 10mg bid for 1 week then decrease to 5mg bid Referrals: Rosa Elena Albert NP [Primary Care Provider] - Print Language: Turkish
[2024-08-16 15:35] LABS: Influenza A PCR NEGATIVE (Negative); Influenza B PCR NEGATIVE (Negative); Resp Syncy Virus RNA Qual PCR NEGATIVE (Negative); SARS COV2 PCR INHOUSE NEGATIVE (Negative)
[2024-08-16 17:00] VITALS: BP 110/75; PULSE 78; RESP 18; TEMP 36.9; O2SAT 97
--- OUTSIDE RECORDS SUMMARY | 2024-08-16 17:56 | XMS_ITS | Continuity of Care Document ---
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 [address] [address], [place], [address], [place]. tel:[phone] Referring Provider: Rosa Elena Albert CNP, [address] [place] [address], [place], [address]. tel:[phone] [facility], [address] [place] [address] [address], [id number], [place] tel:[phone] [facility] Varicose veins of left lower extremity with other complications 4 Judd ROSS RVT, BECKY Sharif. [address] [place] [address], [place], [place], [id number] , [place]. tel:[phone] Referring Provider: Rosa Elena Albert CNP, [address] [place] [address], [place], [address]. tel:[phone] [facility], [address] [place] [address] Dr [address]Suite [place], [id number], [place] tel:[phone] [facility] Encounter for follow-up examination after completed treatment for conditions other than malignant neVaricose veins of left lower extremity with pain 4 Judd ROSS RVT, BECKY Sharif. [address] [place] [address], [place], [place], [id number] , [place]. tel:[phone] Referring Provider: Rosa Elena Albert CNP, [address] [place], [place] [address] , [place], [address]. tel:[phone] [facility], [address] [place] [address] [address], [id number], [place] tel:[phone] [facility] Chronic venous hypertension (idiopathic) with inflammation of left lower extremity 3 Judd ROSS RVT, BECKY Sharif. [address] [place] [address], [address], [place], [id number] , [place]. tel:[phone] Referring Provider: Rosa Elena Albert CNP, [facility] [address], [place], [address]. tel:[phone] Offic/outpt E&m Estab 5 Min Trial - Telemedicine [facility], [address] [place] [address] [facility] [address], [place], [id number], [place] tel:[phone] [facility] [place] Chronic venous hypertension (idiopathic) with other complications of left lower extremity 3 Judd ROSS, ALEXYT, BECKY Sharif. [address] [place] [address] Suite [facility], [facility], [place], [id number] , [place]. tel:[phone] Referring Provider: Rosa Elena Albert CNP, [facility] [address], [place], [address]. tel:[phone] Office/Oupt E&M New Pt 30 Mins [facility], [address] [place] [address] [address], [place], [id number], [place] tel:[phone] [facility] [place] Varicose veins of left lower extremity with inflammationLo calized edemaPruritus, unspecified Dec- 3 Judd ROSS, ALEXYT, BECKY Sharif. [address] [place] [address], [address], [place], [place], [id number] , [place]. tel:[phone] Referring Provider: Rosa Elena Albert CNP, [facility] [address], [place], [address]. tel:[phone] [facility], [address] [place] [address] [address], [place], [id number], [place] tel:[phone] [facility] [place] Varicose veins of left lower extremity with pain Dec- 3 Tyree ROSS FACS RVT BECKY Gomez. [address] [facility], [address], [place], [address], [place]. tel:[phone] Referring Provider: Rosa Elena Albert CNP, [facility] [address], [place], [address]. tel:[phone] Office/Outpt E&M Established 25 Mins [facility], [address] [facility] [address], [place], [id number], [place] tel:[phone] [facility] - [place] Venous insufficiency (chronic) (peripheral) 3 Tyree ROSS FACS RVT BECKY Gomez. [address] [facility], [address], [place], [address], [place]. tel:[phone] Referring Provider: Rosa Elena Albert [employer], [address], [place], [address]. tel:[phone] Family History Family Member Type Diagnosis Age At Onset No Information Payers Payer name Insurance type Covered constitution party ID Authoriza titrini(s) [facility] [id number] Medical Assistance [facility] [id number] Social History Type Description Quantity Date Captured [...]
== END 2024-08-16 17:01 | disposition home or self-care (01) ==
PROVIDERS: Physician Assistant; Emergency Provider Emergency Medicine; PCP Nurse Practitioner Family
DX: J06.9 Acute upper respiratory infection, unspecified (principal); R09.89 Other specified symptoms and signs involving the circulatory and respiratory systems; Z86.718 Personal history of other venous thrombosis and embolism; Z79.01 Long term (current) use of anticoagulants; Z03.818 Encounter for observation for suspected exposure to other biological agents ruled out
CPT/HCPCS: 0241U; 71046; 99282; 99283

== ENCOUNTER → 2024-08-16 15:53 | Outpatient (BNV) | payer MEDICARE, MEDICAID, SELFPAY | PROVIDERS: Emergency Provider Emergency Medicine; PCP Nurse Practitioner Family; Visit Provider Radiology Diagnostic Radiology | DX: R07.9 Chest pain, unspecified (principal); R06.02 Shortness of breath | CPT/HCPCS: 71046 ==